=== PATIENT | male | born 1935 | race Caucasian/White ===

== ENCOUNTER → 2017-02-24 | Outpatient (CLI) | payer OTHER ==
[~2017-02-24] MED LIST: AMLO10TA2 PO; ASPI81TA28 PO; CALC1CAP36 PO; GLIP5TAB11 PO; HAWTCAP PO; HYDR25TA4 PO; IPRA1AER2 INH; LEVO25TA5 PO; LISI-789 PO; LOSA100T65 PO; MULTTAB PO; TPRSR/100 PO
== END | disposition home or self-care (01) ==
LOC: C.LABSPEC 14:34
PROVIDERS: ATTEND Urology
DX: N41.9 Inflammatory disease of prostate, unspecified (principal)

== ENCOUNTER → 2018-05-03 | Outpatient (CLI) | payer OTHER ==
[2018-05-03 17:53] LABS: HEMATOCRIT 38.2 % (42-52); HEMOGLOBIN 12.4 g/dL (14.0-18.0); MEAN CELL VOLUME 97.4 fL (80-100); MEAN CORPUSCULAR HEMOGLOBIN 31.6 pg (25-34); MEAN CORPUSCULAR HGB CONC 32.5 g/dl (32-36); PLATELET COUNT 101 K/uL (130-400); RED CELL DISTRIBUTION WIDTH CV 16.3 % (11.5-14.5); RED CELL DISTRIBUTION WIDTH SD 57.7 fL (36.4-46.3); WHITE BLOOD COUNT 38.72 K/uL (4.8-10.8)
== END | disposition home or self-care (01) ==
LOC: C.LABPBG 11:33
PROVIDERS: ATTEND Urology
DX: C91.90 Lymphoid leukemia, unspecified not having achieved remission (principal)

== ENCOUNTER 2018-09-10 17:30 | Inpatient (IN) ==
[2018-09-10] MEDS ORDERED: MAGNESIUM HYDROXIDE SUSP 30 ML UDC PO PRN (20:12)
[2018-09-10] MEDS ORDERED: ONDANSETRON INJ 2 MG/ML 2 ML VIAL IV PRN (20:12)
[2018-09-10] MEDS ORDERED: POLYETHYLENE (MIRALAX) 17 GM PACK PO PRN (20:12)
[2018-09-10] MEDS ORDERED: MoRPHine SULFATE 2 MG/ML CARP IV PRN (20:17)
[2018-09-10] MEDS ORDERED: NITROGLYCERIN SL 0.4 MG/TAB TAB SL PRN (20:17)
--- NOTE | 2018-09-10 21:29 | History & Physical Report ---
Date of Service September 10, 2018 Assessment & Plan (1) Shortness of breath: 83 y/o M Hx HTN, HLD, COPD, DM II, hypothyroid, CLL, CKD III. The pt presentes as a transfer from [facility] due to progressive SOB x 2 weeks. He reports that this is pronounced with exertion. He normally uses 2l 02 at home. A CTA was obtained at [place] demonstrating moderate BL pleural effusions. Initial labs were concerning for a WBC count of 114 which is well above baseline, anemia and worsening renal function. The pt denies CP, a productive cough or fevers. 1) SOB - likely multifactorial - worsening pleural effusions with reduced lung capacity due to COPD. Clinically, he does not appear volume overloaded for this to be CHF-related. - We will schedule a diagnostic thoracentesis as he does not appear to be volume overloaded. - He will be treated for COPD with an 02 protocol and scheduled nebs - would not provide steroids or antbx at present as there is no clear evidence of exacerbation. 2) CKD - worsening renal function - gentle IVF overnight - recheck AM. Would not be aggressive on fluids until we have a repeat CXR to assess any change in the effusions. 3) CLL - rising WBC count, anemia - will consult his oncologist 4) DM II - will place on a SS 5) Hypothyroid - cont Synthroid 6) HTN - Hold HCTZ/Losartan - cont Metoprolol penidng AM BMP - Hydralazine provided PRN Full code - SCDs pending possible thoracentesis Total time for this admit including review of labs, meds, imaging, records - discussion with pt and review of outside records 45 min History of Present Illness Chief Complaint: Shortness of breath Primary Care Provider: Bryce Randle 83 y/o M Hx HTN, HLD, COPD, DM II, hypothyroid, CLL, CKD III. The pt presentes as a transfer from [facility] due to progressive SOB x 2 weeks. He reports that this is pronounced with exertion. He normally uses 2l 02 at home. A CTA was obtained at [place] demonstrating moderate BL pleural effusions. Initial labs were concerning for a WBC count of 114 which is well above baseline, anemia and worsening renal function. The pt denies CP, a productive cough or fevers. 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 Does not drink alcohol. Lives with his . Family: Mother due to CAD Allergies Allergy/AdvReac Type Severity Reaction Status Date / Time No Known Allergies Allergy Unverified 02/26/15 15:21 Home Medications Home Medications Medication Instructions Recorded Confirmed Type AMLODIPINE BESYLATE (NORVASC) 10 mg PO DAILY #0 tab 02/26/15 History ASPIRIN (ASPIRIN EC) 81 mg PO DAILY #0 02/26/15 History Calcitriol 0.25 mcg PO DAILY #0 02/26/15 History GLIPIZIDE (GLUCOTROL) 5 mg PO BID #0 tab 02/26/15 History HAWTHORN (HAWTHORN PEREZ) 550 mg PO DAILY #0 02/26/15 History HYDROCHLOROTHIAZIDE (HCTZ) 25 mg PO DAILY #0 tab 02/26/15 History IPRATROPIUM-ALBUTEROL (COMBIVENT 1 puff INHALATION Q6H #0 inh 02/26/15 History RESPIMAT) LEVOTHYROXINE SODIUM 25 mcg PO DAILY #0 02/26/15 History LISINOPRIL (ZESTRIL) 2.5 mg PO DAILY #0 02/26/15 History LOSARTAN POTASSIUM (COZAAR) 100 mg PO DAILY #0 tab 02/26/15 History MULTIVITAMINS/MINERALS (MVI WITH 1 tab PO DAILY #0 tab 02/26/15 History MINERALS) Metoprolol Succinate (Metoprolol 100 mg PO DAILY #0 02/26/15 History Succinate ER) cholecalciferol (vitamin D3) 2,000 unit PO DAILY 09/10/18 09/10/18 History [Vitamin D3] cinnamon bark-chromium picolin 1 tab PO DAILY 09/10/18 09/10/18 History isosorbide mononitrate 120 mg PO DAILY 09/10/18 09/10/18 History selenium 50 mcg PO DAILY 09/10/18 09/10/18 History Past Med/Surg History Social History Current Living Situation: Spouse Other Information That Helps Us Care for You: No Feels Safe at Home: Yes Safety Concerns: Feels Safe At This Time Smoking Status: Never smoker Do You Dip or Chew Tobacco: No Hx Alcohol Use: No Hx Substance Use: No Beliefs That Will Affect Care: None Preferred Language: Kinyarwanda Communication Ability: Effective Senior Category Manager Required: No Review of Systems General: Denies fevers, night sweats, weight loss, weight gain ENT: Denies throat pain, nasal congestion Eyes: Denies acute visual impairment, eye pain Cardiovascular: Denies CP, palpitations, PND, orthopnea Respiratory: Progressive sob as above GI: Denies nausea, vomiting, diarrhea, constipation, GI bleeding : Denies dysuria, hesitancy, frequency, hematuria Neuro: Denies headache, lightheadedness, syncope, unilateral weakness, acute loss of balance, memory loss Endocrine: Denies polydypsia, polyuria Heme: Denies unexplained bruising Skin: Denies acute rash or ulcers Physical Exam 2 Vital Signs (Past 24 Hours): Last Vital Signs Temp 36.3 C L 09/10/18 19:37 Pulse 66 09/10/18 19:37 Resp 20 09/10/18 19:37 BP 163/75 H 09/10/18 19:37 Pulse Ox 94 09/10/18 19:37 Physical Exam: General: Mildly tachypneic, overweight, elderly male, AAO x 3, no distress ENT: No erythema or exudates, no thrush Eyes: BENJAMIN, EOMI Head and neck: Normocephalic, atraumatic, No JVD, neck is supple. Chest/heart: Nontender, S1,2, faint, no murmurs Lungs: There is no air entry at the bases, poor air movement, no crackles or wheezing Abdomen: Nontender, nondistended, BS+ Neuro: AAO x 3, speech is clear, no unilateral weakness or loss of sensation, coordination intact Musculoskeletal: No joint inflammation, muscle tenderness, FROM Skin: No acute rashes or ulcers Extremities: No clubbing, cyanosis, edema Results & Data Laboratory Results WBC 114 Hb 9.5 Plt 144 BUN 65 Creat 3.5 Diagnostic Findings CTA: 1) Moderate BL pleural effusions - R > L 2) BL atelectasis 3) Cardiomegaly 4) SPlenomegaly 5) Abnormal mediastinal and axillary lymphadenopathy
[2018-09-10] MEDS ORDERED: HydrALAZINE HCL 20 MG/ML VIAL IV PRN (22:23)
[2018-09-10] MEDS ORDERED: SODIUM CHLORIDE 0.9% 1000ML 1,000 ML IV SCH (22:30)
[2018-09-10] MEDS: ACETAMINOPHEN 325 MG TAB PO PRN (22:49)
[2018-09-11] MEDS ORDERED: PANTOprazole 40 MG TAB PO PRN (03:41)
[2018-09-11] MEDS ORDERED: cloNIDine HCL 0.3 MG/24 HR TRANSDERM SYS TD SCH (03:45)
[2018-09-11] MEDS ORDERED: GLUCOSE 10 TABS/TUBE PO PRN (04:35)
[2018-09-11] MEDS ORDERED: CARBOHYDRATES FOR HYPOGLYCEMIA PO PRN (04:35)
[2018-09-11] MEDS ORDERED: GLUCAGON FOR INJ 1 MG VIAL IM PRN (04:35)
[2018-09-11] MEDS ORDERED: GLUCOSE 40% GEL 15 GM TUBE PO PRN (04:35)
[2018-09-11] MEDS ORDERED: DEXTROSE 50% 50 ML SYRINGE IV PRN (04:35)
[2018-09-11] MEDS: LEVOTHYROXINE SODIUM 150 MCG TABLET PO SCH (05:55)
[2018-09-11 06:54] LABS: BUN Creatinine Ratio 17.5 (10-20); Calcium 8.4 mg/dl (8.5-10.1); Creatinine Clr Calc Pharmacy 16.5 ml/min; Est GFR (African American) 17.5; Est GFR (Non-African American) 15.1; Magnesium 2.6 mg/dl (1.8-2.4); Potassium 5.4 mmol/L (3.5-5.1)
--- NOTE | 2018-09-11 07:28 | XRay Report ---
XR chest 1V portable CLINICAL HISTORY: Effusions. COMPARISON STUDY: Chest radiograph February 26, 2015. FINDINGS: There is no pneumothorax. There are small bilateral pleural effusions. Interstitial thicken ing suggests pulmonary edema. Left basilar opacity is present. Mild cardiomegaly is noted. IMPRESSION: 1. Interstitial thickening suggestive of pulmonary edema. 2. Small bilateral pleural effusions with left basilar opacity which may reflect pneumonia or atelect asis. Radiographic follow-up to ensure resolution is recommended. Electronically signed by: Paolo Roblero M.D. 09/11/2018 7:27 AM
[2018-09-11 07:38] LABS: Hematocrit (blood only) 28.8 % (42-52); Hemoglobin 8.7 g/dL (14.0-18.0); Mean Corpuscular Hgb Conc 30.2 g/dL (32-36); Mean Corpuscular Volume 105.1 fL (80-100); Mean Platelet Volume 9.8 fL (7.4-10.4); Platelet Count 119 K/uL (130-400); RDW Coefficient of Variation 17.2 % (11.5-14.5); RDW Standard Deviation 65.2 fL (36.4-46.3); Red Blood Count 2.74 M/uL (4.7-6.1); White Blood Count 90.87 K/uL (4.8-10.8)
[2018-09-11] MEDS ORDERED: SODIUM POLYSTYRENE SULFONATE 15G/60ML SUSP PO STA (08:07)
[2018-09-11] MEDS: CALCITRIOL 0.25 MCG CAPSULE PO SCH (08:10)
[2018-09-11] MEDS: METOPROLOL SUCC 50MG EXT REL TAB PO SCH (08:10)
[2018-09-11] MEDS: ISOSORBIDE MONO EXTENDED REL 60 MG TABCR PO SCH (08:11)
[2018-09-11] MEDS: MAGNESIUM OXIDE 400 MG TAB PO SCH (08:11)
[2018-09-11] MEDS: ASPIRIN 81 MG ECTAB PO SCH (08:12)
[2018-09-11] MEDS: AMLODIPINE BESYLATE 5 MG TAB PO SCH (08:12)
[2018-09-11] MEDS: INSULIN ASPART 100 UNITS/ML 3 ML PEN SC SCH ×4 (08:13→20:42)
[2018-09-11 08:41] LABS: ALC (manual) 84.51 K/uL (1.2-3.4); Eosinophils # (manual) 0.73 K/uL (0-0.5); Lymphocytes # (manual) 84.51 K/uL (1.2-3.4); Monocytes # (manual) 2.82 K/uL (0.11-0.59); Monocytes % (manual) 3.1 %; Neutrophils % (manual) 3.1 %; Smudge Cells Present
--- NOTE | 2018-09-11 08:53 | Oncology Consultation ---
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 This disease typically is more aggressive than standard risk CLL and carries a poorer prognosis. It also is less responsive to conventional cytotoxic chemotherapy. His lymphocytes are essentially stable from 2 months ago, in the mid-80s. However, he has become more anemic, as discussed below. If this is related to his CLL, it would be an indication to treat him regardless of his ALC. Some of his generalized fatigue and weakness are probably related to his CLL, though it may also be related to his cardiovascular disease. There is no need to initiate urgent therapy, though I do think he will need to begin treatment in the coming weeks. Present on Admission?: Yes (2) Anemia: The explanation for his anemia is not immediately clear. It could certainly be due to progressive CLL, but his ALC was the same in July as it is now and his hemoglobin then was 11.2. He denies any acute blood loss. CLL can cause an autoimmune hemolytic anemia. I would check LFTs and a haptoglobin. If they are abnormal, we can send off a HUYEN to confirm hemolysis. Given his issues with volume overload, I would be cautious about transfusing him. However , a hemoglobin of 8 may be contributing to his heart failure, so careful transfusion with post-transfusion diuresis may be appropriate, but I would not give more than 1 unit at a time. Present on Admission?: Yes History of Present Illness Reason for Consultation: CLL, increasing leukocytosis Attending Physician: Mikel Jaramillo MD, PhD, [facility] History of Present Illness Mr. Marcum is an 83 year old gentleman with a history of COPD, CHF, and diabetes. He also has chronic lymphocytic leukemia with a 17p deletion, which is typically the most aggressive variant. In November of this year, he had an absolute lymphocyte count of 16.8 with hemoglobin 12.8, platelets 146. He was offered front-line therapy with Ibrutinib but refused. Since that time, his ALC has progressed considerably. In July, his total WBC count was 102K with an ALC of 90k, hemoglobin 11.4, and platelets 104k. He presented to [facility] yesterday complaining of shortness of breath. A CTA there revealed bilateral pleural effusions, cardiomegaly, and bibasilar atelectasis. He also had a creatinine of 3.5, which is around his baseline (since February, he ran from 3.1 to 3.4). His blood work here shows a WBC count of 90k with an ALC of 84, hemoglobin 8.4, and platelets of 119. He denies any bleeding, bruising, melena, or other stool changes. Allergies Allergy/AdvReac Type Severity Reaction Status Date / Time No Known Allergies Allergy Unverified 02/26/15 15:21 Home Medications Home Medications Medication Instructions Recorded Confirmed Type AMLODIPINE BESYLATE (NORVASC) 10 mg PO DAILY #0 tab 02/26/15 09/10/18 History ASPIRIN (ASPIRIN EC) 81 mg PO DAILY #0 02/26/15 09/10/18 History Calcitriol 0.25 mcg PO Q OTHER DAY #0 02/26/15 09/10/18 History GLIPIZIDE (GLUCOTROL) 5 mg PO BID #0 tab 02/26/15 09/10/18 History HAWTHORN (HAWTHORN PEREZ) 150 mg PO DAILY PRN #0 02/26/15 09/10/18 History HYDROCHLOROTHIAZIDE (HCTZ) 25 mg PO DAILY #0 tab 02/26/15 History IPRATROPIUM-ALBUTEROL (COMBIVENT 1 puff INHALATION Q6H #0 inh 02/26/15 History RESPIMAT) LEVOTHYROXINE SODIUM 150 mcg PO DAILY #0 02/26/15 09/10/18 History LISINOPRIL (ZESTRIL) 2.5 mg PO DAILY #0 02/26/15 History LOSARTAN POTASSIUM (COZAAR) 100 mg PO DAILY #0 tab 02/26/15 History MULTIVITAMINS/MINERALS (MVI WITH 1 tab PO DAILY #0 tab 02/26/15 09/10/18 History MINERALS) Metoprolol Succinate (Metoprolol 100 mg PO DAILY #0 02/26/15 09/10/18 History Succinate ER) Pro Stavan 1 tab PO DAILY 09/10/18 09/10/18 History atorvastatin 40 mg PO HS 09/10/18 09/10/18 History cholecalciferol (vitamin D3) 2,000 unit PO DAILY 09/10/18 09/10/18 History [Vitamin D3] cinnamon bark-chromium picolin 1 tab PO DAILY 09/10/18 09/10/18 History clonidine 1 patch TRANSDERMAL WK 09/10/18 09/10/18 History grape seed extract 1 tab PO DAILY 09/10/18 09/10/18 History hydralazine 25 mg PO TID 09/10/18 09/10/18 History isosorbide mononitrate 120 mg PO DAILY 09/10/18 09/10/18 History lorazepam 1 tab PO PRN 09/10/18 History lysine [L-Lysine] 500 mg PO DAILY 09/10/18 09/10/18 History magnesium 250 mg PO DAILY 09/10/18 09/10/18 History omeprazole 20 mg PO DAILY PRN 09/10/18 09/10/18 History selenium 50 mcg PO DAILY 09/10/18 09/10/18 History turmeric root extract 500 mg PO DAILY 09/10/18 09/10/18 History umeclidinium [Incruse Ellipta] 1 inh INHALATION DAILY 09/10/18 09/10/18 History Patient History Family History Mother Heart attack Sister Diabetes 1.5, managed as type 1 Social History Current Living Situation: Spouse Other Information That Helps Us Care for You: No Feels Safe at Home: Yes Safety Concerns: Feels Safe At This Time Smoking Status: Never smoker Do You Dip or Chew Tobacco: No Hx Alcohol Use: No Hx Substance Use: No Beliefs That Will Affect Care: None Preferred Language: Indonesian Communication Ability: Effective 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 Review of Systems Constitutional: no fever and no sweats Ear, Nose, Mouth, Throat: no epistaxis and no bleeding gums Respiratory: + cough, + dyspnea and + dyspnea on exertion; no sputum production Cardiovascular: + dyspnea on exertion; no chest pain, no palpitations and no edema Gastrointestinal: no abdominal pain, no nausea and no blood in stools Genitourinary (Male): no dysuria and no hematuria Integumentary: no rash and no bleeding lesions Neurologic: no localized weakness and no headache(s) Hematologic / Lymphatic: + lymphadenopathy (cervical); no easy bleeding and no night sweats Physical Exam 2 Vital Signs (Past 24 Hours): Last Vital Signs Temp 36.7 C 09/11/18 07:43 Pulse 54 L 09/11/18 07:43 Resp 20 09/11/18 07:43 BP 132/68 09/11/18 07:43 Pulse Ox 91 09/11/18 07:43 Constitutional: + ill appearing (chronically) and + obese; no acute distress Eyes: + anicteric sclerae and EOM intact bilaterally ENMT: external ear and nose normal, oropharynx normal Respiratory: + cough; no respiratory distress Auscultation: + diminished lung sounds (at the bases bilaterally) and + wheezes (scattered in the upper lemos) Cardiovascular: RRR, no murmur, no edema Vessels: no JVD Gastrointestinal (Abdomen): normal bowel sounds, soft, nontender, no hepatosplenomegaly Musculoskeletal: no cyanosis or clubbing, extremities motor strength 5/5 Skin: no rashes, warm and dry Lymphatic: + cervical lymphadenopathy Results & Data Laboratory Results Abnormal Lab Results 09/11/18 09/11/18 09/11/18 06:06 06:06 07:37 WBC 90.87 H* RBC 2.74 L Hgb 8.7 L Hct 28.8 L MCV 105.1 H MCH 31.8 MCHC 30.2 L RDW Std Deviation 65.2 H RDW Coeff of Maren 17.2 H Plt Count 119 L MPV 9.8 Neutrophils % (Manual) 3.1 Lymphocytes % (Manual) 93.0 Monocytes % (Manual) 3.1 Eosinophils % (Manual) 0.8 Neutrophils # (Manual) 2.82 Total Absolute Neuts 2.82 Lymphocytes # (Manual) 84.51 H Total Abs Lymphocytes 84.51 H Monocytes # (Manual) 2.82 H Eosinophils # (Manual) 0.73 H Smudge Cells Present Sodium 140 Potassium 5.4 H Chloride 111 H Carbon Dioxide 21 Anion Gap 8.0 BUN 62 H Creatinine 3.53 H Est Cr Clr Drug Dosing 16.5 Est GFR ( Amer) 17.5 Est GFR (Non-Af Amer) 15.1 BUN/Creatinine Ratio 17.5 Glucose 94 POC Glucose 104 H Calcium 8.4 L Magnesium 2.6 H _ (1) Anemia Bone marrow failure anemia type: myelophthisis Anemia type: bone marrow failure 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
--- NOTE | 2018-09-11 11:20 | Hospitalist Progress Note ---
Date of Service September 11, 2018 Assessment & Plan (1) Shortness of breath: (2) Anemia: (3) CLL (chronic lymphocytic leukemia): (4) Chest pain: (5) Diabetes: 83 y/o M transfer from [facility] due to progressive SOB x 2 weeks. Hx HTN, HLD, COPD, Chronic O2 dependent with 2 L of nasal cannula oxygen, DM II , hypothyroid, CLL, CKD III. worsenign SOB - likely multifactorial secondary to worsening pleural effusions with CHF exac, and reduced lung capacity due to COPD. right thoracentesis was done removed 850ml brown mild pink pleural fluid , Pleural fluid sent to the basic routine lab cytology and culture and sensitivity. Possible CHF exacerbation, COPD Possible exacerbation with chronic respiratory failure O2 dependent, Continue with an 02 protocol and scheduled nebs Acute on chronic CKD, Per inspector fabric to patient's baseline of creatinine was around 2.5, Nephrology will get medical record from patient's primary inspector fabric and do an ultrasound of the renal and bladder and echocardiogram CLL - rising WBC count, anemia , Patient was refusedCLL, for we will follow-up oncology input DM II, Hypothyroid, HTN; Continue home medication, Continue Hold HCTZ/Losartan, cont Metoprolol , Hydralazine provided PRN Full code - SCDs Will start Lovenox if any sign of bleeding after thoracentesis Thoracentesis: After informed consent, Supervised by Dr. Martinez, obtained and the correct location was determined By portable ultrasound,, the patient was prepped and draped in the usual sterile manner. Using the subcutaneous needle, lidocaine was applied, The thin finder needle was then used to apply further anesthetic and to locate the pleural space. A small margaret was made in the skin. The large- bore needle was then passed over the rib into the pleural space with good fluid return. The catheter was left in place while the needle was withdrawn. After samples were obtained for the laboratory, the catheter was connected to suction and 850ccs of fluid were removed. The catheter was then withdrawn and a bandage placed on the wound. Post-procedure film is pending Subjective Report labored breathing, mild cough, wheezing, Generalized weakness Review of Systems Constitutional: Positive, weakness, or fatigue Respiratory: See HPI,, mild dyspnea on exertion Cardiac: No chest pain, No orthopnea, No PND, Abdomen: No pain, No nausea, No vomiting, No diarrhea, Musculoskeletal: No joint pain, No muscle pain, No swelling, No calf pain, No problem reported : No dysuria, No urinary frequency, No incontinence, No hematuria Neurologic: No paralysis, No weakness, No numbness/tingling, No vertigo, No balance problems Psychiatric: No depression symptoms, No anhedonism, No anxiety, No insomnia, No substance abuse Heme: No abnormal bleeding/bruising, No clotting problems, No swollen lymph nodes, No night sweats Skin: No rash, No itch, No new/changing skin lesions, No color change, No bleeding Physical Exam 2 Vital Signs (Past 24 Hours): Last Vital Signs Temp 36.7 C 09/11/18 07:43 Pulse 54 L 09/11/18 07:43 Resp 20 09/11/18 07:43 BP 132/68 09/11/18 07:43 Pulse Ox 91 09/11/18 07:43 Physical Exam: General Appearance: Frail, chronically ill looking, WD/WN, no apparent distress, Eyes: normal inspection, PERRL, EOMI, sclerae normal ENT: normal ENT inspection, hearing grossly normal, pharynx normal Neck: supple, no adenopathy, thyroid normal, no JVD, no carotid bruits, trachea midline Respiratory/Chest: chest non-tender, Decreased breath sounds, Worse in bilateral lower lung, Spondylotic wheezing Cardiovascular: regular rate, rhythm, no JVD, no murmur Abdomen: normal bowel sounds, non tender, soft, no organomegaly, Extremities: normal range of motion, non-tender, normal inspection, 1+ pedal edema, no calf tenderness, normal capillary refill, pelvis stable, joint has no limited range of motion, capillary refill is normal, no cyanosis clubbing Neurologic/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: 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, no motor/sensory deficits, alert, normal mood/affect, oriented x 3 Skin: normal color, warm/dry, no rash Lymphatic: no adenopathy Results & Data Laboratory Results Laboratory Results - last 24 hr 09/11/18 09/11/18 09/11/18 06:06 06:06 07:37 WBC 90.87 H* RBC 2.74 L Hgb 8.7 L Hct 28.8 L MCV 105.1 H MCH 31.8 MCHC 30.2 L RDW Std Deviation 65.2 H RDW Coeff of Maren 17.2 H Plt Count 119 L MPV 9.8 Neutrophils % (Manual) 3.1 Lymphocytes % (Manual) 93.0 Monocytes % (Manual) 3.1 Eosinophils % (Manual) 0.8 Neutrophils # (Manual) 2.82 Total Absolute Neuts 2.82 Lymphocytes # (Manual) 84.51 H Total Abs Lymphocytes 84.51 H Monocytes # (Manual) 2.82 H Eosinophils # (Manual) 0.73 H Smudge Cells Present Sodium 140 Potassium 5.4 H Chloride 111 H Carbon Dioxide 21 Anion Gap 8.0 BUN 62 H Creatinine 3.53 H Est Cr Clr Drug Dosing 16.5 Est GFR ( Amer) 17.5 Est GFR (Non-Af Amer) 15.1 BUN/Creatinine Ratio 17.5 Glucose 94 POC Glucose 104 H Calcium 8.4 L Magnesium 2.6 H _ (1) Anemia Anemia type: bone marrow failure Bone marrow failure anemia type: myelophthisis Chronic kidney disease stage: Folate deficiency anemia type: Hemolytic anemia type: Iron deficiency anemia type: Other causes of anemia: Vitamin B12 deficiency anemia type: 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
--- NOTE | 2018-09-11 11:37 | Nephrology Consultation ---
Date of Consultation September 11, 2018 Assessment & Plan (1) Acute kidney injury: Mr. Marcum is an 83 year old white male admitted to [facility] for evaluation of dyspnea and wheezing. 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 CXR reveals mild pulmonary congestion and small bilateral pleural effusions. Patient appears clinically volume contracted. Cardiac function is unknown. 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 He has KINGA on CKD. Available records show that creatinine had risen from 2.3 to 2.7 over the last 12 months. Creatinine is now up to 3.5. -- Will order urinalysis w/ microscopy, UPCR and FeNa -- Will order bilateral renal US -- Will order serial PRP -- No acute indication for HD at this time. Will monitor -- Will order last two OV notes and all creatinine values over the last [address] Moreira ([place] [place] [facility]) (2) Chronic kidney disease: -- Available records show that creatinine had risen from 2.3 to 2.7 over the last 12 months. (3) CLL (chronic lymphocytic leukemia): -- WBC 90K. Hgb trending down. Consider blood transfusion. -- Await Oncology input (4) Hyperkalemia: -- Kayexelate administered by primary service (5) CHF (congestive heart failure): -- CXR w/ mild vascular congestion and small bilateral effusions. Although patient appears clinically volume contracted will hold IV fluids, check FeNa and order echocardiogram History of Present Illness Reason for Consultation: KINGA on CKD Attending Physician: Mikel Jaramillo MD, PhD, [facility] History of Present Illness Mr. Marcum is an 83 year old white male who is seen at the request of Dr. Jaramillo for evaluation of KINGA on CKD. Medical records in the EMR were reviewed today and are summarized as follows: Mr. Marcum resides near [place], [place]. He has CKD and has been cared for by Dr. Moreira. Available records show that creatinine has risen from 2.3 to 2.7 over the last 12 months. His medical history is also significant for COPD, HTN, AODM, BPH and CLL. Over the last 2 weeks Mr. Marcum reports progressive CAMARENA and wheezing. He presented to [facility] yesterday and was found to have WBC 90K, mild CHF and KINGA/ CKD. He was transferred to [facility] for ongoing medical management, Oncology and Nephrology evaluations. Creatinine has risen to 3.5. Mr. Marcum denies the regular use of NSAIDS, CORI/ARB or exposure to known nephrotoxic agents. He reports good UO and no difficulty voiding. Allergies Allergy/AdvReac Type Severity Reaction Status Date / Time No Known Allergies Allergy Unverified 02/26/15 15:21 Home Medications Home Medications Medication Instructions Recorded Confirmed Type AMLODIPINE BESYLATE (NORVASC) 10 mg PO DAILY #0 tab 02/26/15 09/10/18 History ASPIRIN (ASPIRIN EC) 81 mg PO DAILY #0 02/26/15 09/10/18 History Calcitriol 0.25 mcg PO Q OTHER DAY #0 02/26/15 09/10/18 History GLIPIZIDE (GLUCOTROL) 5 mg PO BID #0 tab 02/26/15 09/10/18 History HAWTHORN (HAWTHORN PEREZ) 150 mg PO DAILY PRN #0 02/26/15 09/10/18 History HYDROCHLOROTHIAZIDE (HCTZ) 25 mg PO DAILY #0 tab 02/26/15 History IPRATROPIUM-ALBUTEROL (COMBIVENT 1 puff INHALATION Q6H #0 inh 02/26/15 History RESPIMAT) LEVOTHYROXINE SODIUM 150 mcg PO DAILY #0 02/26/15 09/10/18 History LISINOPRIL (ZESTRIL) 2.5 mg PO DAILY #0 02/26/15 History LOSARTAN POTASSIUM (COZAAR) 100 mg PO DAILY #0 tab 02/26/15 History MULTIVITAMINS/MINERALS (MVI WITH 1 tab PO DAILY #0 tab 02/26/15 09/10/18 History MINERALS) Metoprolol Succinate (Metoprolol 100 mg PO DAILY #0 02/26/15 09/10/18 History Succinate ER) Pro Stavan 1 tab PO DAILY 09/10/18 09/10/18 History atorvastatin 40 mg PO HS 09/10/18 09/10/18 History cholecalciferol (vitamin D3) 2,000 unit PO DAILY 09/10/18 09/10/18 History [Vitamin D3] cinnamon bark-chromium picolin 1 tab PO DAILY 09/10/18 09/10/18 History clonidine 1 patch TRANSDERMAL WK 09/10/18 09/10/18 History grape seed extract 1 tab PO DAILY 09/10/18 09/10/18 History hydralazine 25 mg PO TID 09/10/18 09/10/18 History isosorbide mononitrate 120 mg PO DAILY 09/10/18 09/10/18 History lorazepam 1 tab PO PRN 09/10/18 History lysine [L-Lysine] 500 mg PO DAILY 09/10/18 09/10/18 History magnesium 250 mg PO DAILY 09/10/18 09/10/18 History omeprazole 20 mg PO DAILY PRN 09/10/18 09/10/18 History selenium 50 mcg PO DAILY 09/10/18 09/10/18 History turmeric root extract 500 mg PO DAILY 09/10/18 09/10/18 History umeclidinium [Incruse Ellipta] 1 inh INHALATION DAILY 09/10/18 09/10/18 History Patient History Family History Mother Heart attack Sister Diabetes 1.5, managed as type 1 Social History Current Living Situation: Spouse Other Information That Helps Us Care for You: No Feels Safe at Home: Yes Safety Concerns: Feels Safe At This Time Smoking Status: Never smoker Do You Dip or Chew Tobacco: No Hx Alcohol Use: No Hx Substance Use: No Beliefs That Will Affect Care: None Preferred Language: French Communication Ability: Effective [employer] Required: No Review of Systems Constitutional: no fever Eyes: no problem reported Respiratory: + dyspnea on exertion and + wheezing Cardiovascular: no chest pain and no edema Gastrointestinal: no abdominal pain, no vomiting and no diarrhea/loose stools Genitourinary (Male): no dysuria, no difficulty urinating and no hematuria Physical Exam 2 Vital Signs (Past 24 Hours): Last Vital Signs Temp 36.7 C 09/11/18 07:43 Pulse 54 L 09/11/18 07:43 Resp 20 09/11/18 07:43 BP 132/68 09/11/18 07:43 Pulse Ox 91 09/11/18 07:43 Constitutional: well developed and well nourished Eyes: PERRL, conjunctivae normal, anicteric sclerae ENMT: Mouth: + oral mucosal abnormality (dry mucous membranes) Neck: trachea midline, no thyromegaly Respiratory: normal respiratory effort, lungs clear to auscultation Cardiovascular: RRR, no murmur, no edema Vessels: no JVD Extremities: no edema Gastrointestinal (Abdomen): normal bowel sounds, soft, nontender, no hepatosplenomegaly Skin: + turgor decreased Results & Data Laboratory Results Laboratory Tests 09/11/18 09/11/18 06:06 06:06 WBC 90.87 H* Hgb 8.7 L Hct 28.8 L Plt Count 119 L Sodium 140 Potassium 5.4 H Chloride 111 H Carbon Dioxide 21 BUN 62 H Creatinine 3.53 H Glucose 94 Calcium 8.4 L Magnesium 2.6 H 09/11/18 CXR: 1. Interstitial thickening suggestive of pulmonary edema. 2. Small bilateral pleural effusions with left basilar opacity which may reflect pneumonia or atelectasis. Radiographic follow-up to ensure resolution is recommended.
--- NOTE | 2018-09-11 12:17 | XRay Report ---
XR chest 2V routine CLINICAL HISTORY: Status post right thoracentesis. COMPARISON STUDY: Chest radiograph September 11, 2018. FINDINGS: There is no pneumothorax following right thoracentesis. Right pleural effusion has decrease d in volume. Trace left pleural effusion is noted. Cardiomegaly is noted. Interstitial thickening per sists. This suggests pulmonary edema. There is left basilar hazy opacity. Several old right rib fract ures are noted. IMPRESSION: 1. No pneumothorax following right thoracentesis. 2. Persistent interstitial thickening which favors pulmonary edema. 3. Mild left basilar opacity which may reflect atelectasis or consolidation. Electronically signed by: Paolo Roblero M.D. 09/11/2018 12:16 PM
[2018-09-11 12:33] LABS: Total Protein Pleural Fluid 3.4 g/dl
[2018-09-11] MEDS: ALUMINUM/MAGNESIUM SUSP 30 ML UDC PO PRN (12:33)
[2018-09-11 12:34] LABS: Appearance Urine Clear (Clear); Bacteria Urine Automated Negative (Negative); Bilirubin Urine Negative (Negative); Color Urine Yellow; Epithelial Cell Urine Auto 0-5 /lpf (0-5); Glucose Urine UA Negative (Negative); Ketones Urine Negative (Negative); Leukocyte Esterase Urine Negative (Negative); Nitrite Urine Negative (Negative); Protein Urine 2+ (Negative); Specific Gravity Urine 1.016 (1.000-1.030); Urobilinogen Urine Negative (Negative)
--- NOTE | 2018-09-11 12:34 | Ultrasound Report ---
RENAL ULTRASOUND CLINICAL HISTORY: Acute kidney injury. COMPARISON STUDY: CT of the abdomen and pelvis February 16, 2015. TECHNIQUE: Sonography of the kidneys and the urinary bladder was performed. FINDINGS: The right kidney measures 9.2 cm in maximal dimension and the left measures 9.8 cm per ther e is no hydronephrosis. There is moderate renal cortical thinning. Several left renal cysts are noted . Incidental note is made of a left pleural effusion and moderate splenomegaly. Spleen measures 17.1 cm in maximal dimension. A few splenic cysts are noted. Bladder is suboptimally assessed given underd istention. There is mild irregular bladder wall thickening. IMPRESSION: 1. No hydronephrosis. 2. Moderate splenomegaly. 3. Moderate renal cortical thinning. Electronically signed by: Paool Roblero M.D. 09/11/2018 12:32 PM
[2018-09-11] MEDS: PANTOprazole 40 MG TAB PO SCH (12:35)
[2018-09-11 13:00] LABS: Creatinine Urine Random 66.4 mg/dl; Total Protein Urine Random 158.5 mg/dl (0-11.9)
[2018-09-11] MEDS: ALPRAZolam 0.25 MG TABLET PO PRN ×2 (14:05→20:45)
--- NOTE | 2018-09-11 14:59 | Pulmonary Consultation ---
Date of Consultation September 11, 2018 Assessment & Plan (1) CHF (congestive heart failure): Impression: 1. Dyspnea likely multifactorial, however the pleural fluid are transudate in nature, most likely representing cardiac or renal source. 2. The patient has no history of COPD, never smoked cigarettes in the past, he worked in the [employer] and likely has restrictive lung disease rather than obstructive lung disease. 3. Unclear to me why the patient was started on Incruse as an outpatient, I do not have pulmonary function test on him in this hospital. 4. Consider high-resolution CAT scan of the chest given his elevated white count, leukemoid pneumonitis can occur, however I would expect the WBC in the range of 400,000 rather than only 90,000. 5. Discussed with Dr. Jaramillo, appreciate his assistance. Thank you History of Present Illness Reason for Consultation: Shortness of breath and bilateral pleural effusion. Requesting Physician: Dr. Jaramillo Attending Physician: Mikel Jaramillo MD, PhD, [facility] History of Present Illness Dear Dr. Jaramillo: Thank you for the kind referral Mr. Marcum to pulmonary service. This is 83-year -old gentleman with a history of CLL, interstitial lung disease, hypothyroidism , CKD, diabetes, presented to [facility] with increasing shortness of breath, the patient underwent a chest x-ray which showed bilateral pleural effusion, and he was sent to our institution for further management. The patient has been followed by a bleach chlorinator and a technical support associate at [facility] but due to insurance issues he could not follow-up with them. The patient on his presentation noted to have increasing shortness of breath accompanied with nonproductive cough. He did have elevated white count 214,000 part of his illness with CLL. The patient does have orthopnea and has dyspnea on exertion. No increased swelling in his lower extremities. No abdominal pain noted no change in bowel movements or urine habits and no nausea or vomiting. No hemoptysis either. Review of system apart from the above was unremarkable. When I interviewed the patient, he continued to have symptoms, bedside ultrasound was done which showed bilateral pleural effusion right greater than left. Thoracentesis was done with 850 mL of blood-tinged fluid was removed, appears to be transudate in nature. Cell count in this fluid are still pending. Patient was evaluated by nephrology, abdominal ultrasound which showed splenomegaly and atrophy of the renal cortex. Social history, the patient never smoked cigarettes in his life, does not have secondhand exposure to smoking. 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 Family history is not contributing, and post surgical history as mentioned above in the H&P. Allergies Allergy/AdvReac Type Severity Reaction Status Date / Time No Known Allergies Allergy Unverified 02/26/15 15:21 Home Medications Home Medications Medication Instructions Recorded Confirmed Type AMLODIPINE BESYLATE (NORVASC) 10 mg PO DAILY #0 tab 02/26/15 09/10/18 History ASPIRIN (ASPIRIN EC) 81 mg PO DAILY #0 02/26/15 09/10/18 History Calcitriol 0.25 mcg PO Q OTHER DAY #0 02/26/15 09/10/18 History GLIPIZIDE (GLUCOTROL) 5 mg PO BID #0 tab 02/26/15 09/10/18 History HAWTHORN (HAWTHORN PEREZ) 150 mg PO DAILY PRN #0 02/26/15 09/10/18 History HYDROCHLOROTHIAZIDE (HCTZ) 25 mg PO DAILY #0 tab 02/26/15 History IPRATROPIUM-ALBUTEROL (COMBIVENT 1 puff INHALATION Q6H #0 inh 02/26/15 History RESPIMAT) LEVOTHYROXINE SODIUM 150 mcg PO DAILY #0 02/26/15 09/10/18 History LISINOPRIL (ZESTRIL) 2.5 mg PO DAILY #0 02/26/15 History LOSARTAN POTASSIUM (COZAAR) 100 mg PO DAILY #0 tab 02/26/15 History MULTIVITAMINS/MINERALS (MVI WITH 1 tab PO DAILY #0 tab 02/26/15 09/10/18 History MINERALS) Metoprolol Succinate (Metoprolol 100 mg PO DAILY #0 02/26/15 09/10/18 History Succinate ER) Pro Stavan 1 tab PO DAILY 09/10/18 09/10/18 History atorvastatin 40 mg PO HS 09/10/18 09/10/18 History cholecalciferol (vitamin D3) 2,000 unit PO DAILY 09/10/18 09/10/18 History [Vitamin D3] cinnamon bark-chromium picolin 1 tab PO DAILY 09/10/18 09/10/18 History clonidine 1 patch TRANSDERMAL WK 09/10/18 09/10/18 History grape seed extract 1 tab PO DAILY 09/10/18 09/10/18 History hydralazine 25 mg PO TID 09/10/18 09/10/18 History isosorbide mononitrate 120 mg PO DAILY 09/10/18 09/10/18 History lorazepam 1 tab PO PRN 09/10/18 History lysine [L-Lysine] 500 mg PO DAILY 09/10/18 09/10/18 History magnesium 250 mg PO DAILY 09/10/18 09/10/18 History omeprazole 20 mg PO DAILY PRN 09/10/18 09/10/18 History selenium 50 mcg PO DAILY 09/10/18 09/10/18 History turmeric root extract 500 mg PO DAILY 09/10/18 09/10/18 History umeclidinium [Incruse Ellipta] 1 inh INHALATION DAILY 09/10/18 09/10/18 History Patient History Family History Mother Heart attack Sister Diabetes 1.5, managed as type 1 Social History Current Living Situation: Spouse Other Information That Helps Us Care for You: No Feels Safe at Home: Yes Safety Concerns: Feels Safe At This Time Smoking Status: Never smoker Do You Dip or Chew Tobacco: No Hx Alcohol Use: No Hx Substance Use: No Beliefs That Will Affect Care: None Preferred Language: Bolivian Communication Ability: Effective [employer] Required: No Review of Systems Review of system including 14 systems was unremarkable except for the above mentioned in the first section. Physical Exam 2 Vital Signs (Past 24 Hours): Last Vital Signs Temp 36.7 C 09/11/18 07:43 Pulse 51 L 09/11/18 13:15 Resp 20 09/11/18 07:43 BP 132/68 09/11/18 07:43 Pulse Ox 91 09/11/18 07:43 Physical Exam: No fever, vital signs are stable, O2 saturation 94% on 3 L nasal cannula, no JVP, bilateral wheezing, S1-S2 regular rate and rhythm, abdomen is benign, trace edema in the periphery. Results & Data Laboratory Results Elevated BUN and creatinine, WBC is 90,000, hematocrit is stable. And platelets has been stable as well. Pleural fluid transudate in nature. Diagnostic Findings Chest x-ray showed haziness bilaterally, I do not have previous pulmonary function test on him, no CAT scan also done on him in this hospital.
--- NOTE | 2018-09-11 15:06 | Procedure Note ---
Procedure Note Date of Service September 11, 2018 Note Procedure was done at the bedside, performed by Dr. Jaramillo, I was present throughout the entire procedure. The patient consented to the procedure, risks and benefits explained in details , agreed to the procedure. The patient was placed in upright position, under ultrasound guidance, on the right eighth intercostal space posteriorly, under strict sterile field the skin was prepped with chlorhexidine, and injected with 10 mL of 1% lidocaine, using a scalpel and Seldinger technique, the catheter was introduced into the right pleural cavity, total amount of 850 mL of blood-tinged fluid was removed, sent for analysis, initial analysis showed transudate pleural effusion. After completion of the procedure, the catheter was removed and pressure applied at the insertion site for 2 minutes, chest x-ray did not reveal any pneumothorax, tolerated the procedure very well without complication. Thank you
[2018-09-11] MEDS: ATORVASTATIN 40 MG TAB PO SCH (20:42)
[2018-09-12 02:29] LABS: Mononuclear WBC Pleural 98.6 %; Polynuclear WBC Pleural 1.4 %; RBC Pleural Fluid (A) 20000 /uL; Source Pleural Fluid RIGHT LUNG; WBC Pleural Fluid (A) 2124 /uL
[2018-09-12] MEDS: LEVOTHYROXINE SODIUM 150 MCG TABLET PO SCH (05:58)
[2018-09-12 07:42] LABS: Hematocrit (blood only) 28.2 % (42-52); Hemoglobin 8.7 g/dL (14.0-18.0); Mean Corpuscular Hgb Conc 30.9 g/dL (32-36); Mean Corpuscular Volume 105.6 fL (80-100); Mean Platelet Volume 9.8 fL (7.4-10.4); Platelet Count 105 K/uL (130-400); RDW Coefficient of Variation 16.9 % (11.5-14.5); RDW Standard Deviation 64.9 fL (36.4-46.3); Red Blood Count 2.67 M/uL (4.7-6.1); White Blood Count 87.93 K/uL (4.8-10.8)
[2018-09-12 07:49] LABS: BUN Creatinine Ratio 16.5 (10-20); Calcium 8.7 mg/dl (8.5-10.1); Creatinine Clr Calc Pharmacy 16.3 ml/min; Est GFR (African American) 17.2; Est GFR (Non-African American) 14.8; Potassium 4.5 mmol/L (3.5-5.1)
[2018-09-12 08:02] LABS: Albumin Globulin Ratio 0.9 (0.9-2); Bilirubin,Total 0.3 mg/dl (0.2-1); Globulin 3.4 gm/dl (2.5-4.0); Total Protein 6.4 gm/dl (6.4-8.2)
[2018-09-12] MEDS: METOPROLOL SUCC 50MG EXT REL TAB PO SCH (08:31)
[2018-09-12] MEDS: ISOSORBIDE MONO EXTENDED REL 60 MG TABCR PO SCH (08:32)
[2018-09-12] MEDS: AMLODIPINE BESYLATE 5 MG TAB PO SCH (08:33)
[2018-09-12] MEDS: ASPIRIN 81 MG ECTAB PO SCH (08:34)
[2018-09-12] MEDS: INSULIN ASPART 100 UNITS/ML 3 ML PEN SC SCH ×4 (08:39→20:49)
--- NOTE | 2018-09-12 10:28 | Nephrology Progress Note ---
Date of Service September 12, 2018 Assessment & Plan (1) Acute kidney injury: Mr. Marcum is an 83 year old white male admitted to [facility] for evaluation of dyspnea and wheezing. 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 CXR reveals mild pulmonary congestion and small bilateral pleural effusions. Patient appears clinically volume contracted. Cardiac function is unknown. 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 He has KINGA on CKD. Available records show that creatinine had risen from 2.3 to 2.7 over the last 12 months. Creatinine is now up to 3.5. -- UA +2 protein and trace blood. Microscopy acellular. -- Check CPK with next blood work. -- Renal US reviewed this morning. No evidence of obstruction. -- Repeat RPP tomorrow AM. -- No acute indication for HD at this time. Will monitor. -- Recent clinic notes from Dr. Moreira ([facility]) have been requested. (2) Chronic kidney disease: -- Available records show that creatinine had risen from 2.3 to 2.7 over the last 12 months. -- Wyatt notes that he had discussed potential future considerations for HD with Dr. Moreira in the past. Wyatt had deferred scheduling AVF placement. He is receptive to HD if indicated. (3) CLL (chronic lymphocytic leukemia): -- Hematology consultation reviewed. -- No emergent plan for treatment. -- Hemoglobin stable. (4) Hyperkalemia: -- Improved following administration of Kayexelate. (5) CHF (congestive heart failure): -- CXR w/ mild vascular congestion and small bilateral effusions. -- TTE demonstrated increased RVSP with mild concentric LVH. No significant valvular heart disease. -- Net negative fluid balance (- 500 ml) without diuretics. -- Will continue to monitor. Diuretics may be restarted as needed to encourage net negative fluid balance. Subjective No acute events overnight. Wyatt reports improvement in dyspnea. CAMARENA persists. Wheeze persists. Appetite is reduced. Activity tolerance is reduced. No fevers or chills. No chest pain or palpitations. Review of Systems All systems reviewed & are unremarkable except as noted in HPI & below Physical Exam 2 Vital Signs (Past 24 Hours): Last Vital Signs Temp 37.1 C 09/12/18 07:27 Pulse 60 09/12/18 07:27 Resp 24 09/12/18 07:27 BP 134/68 09/12/18 07:27 Pulse Ox 93 09/12/18 07:27 Constitutional: well developed and well nourished Eyes: PERRL, conjunctivae normal, anicteric sclerae ENMT: Mouth: + oral mucosal abnormality (dry mucous membranes) Neck: trachea midline, no thyromegaly Respiratory: normal respiratory effort, lungs clear to auscultation Cardiovascular: RRR, no murmur, no edema Vessels: no JVD Extremities: no edema Gastrointestinal (Abdomen): normal bowel sounds, soft, nontender, no hepatosplenomegaly Musculoskeletal: Extremities: no cyanosis and no clubbing Skin: + turgor decreased Neurologic: awake Motor/Sensory: no tremor and no asterixis Psychiatric: Orientation: oriented to person Affect: euthymic affect Results & Data Laboratory Results Laboratory Results - last 24 hr 09/11/18 09/11/18 09/11/18 11:15 11:15 11:47 WBC RBC Hgb Hct MCV MCH MCHC RDW Std Deviation RDW Coeff of Maren Plt Count MPV Sodium Potassium Chloride Carbon Dioxide Anion Gap BUN Creatinine Est Cr Clr Drug Dosing Est GFR ( Amer) Est GFR (Non-Af Amer) BUN/Creatinine Ratio Glucose POC Glucose 172 H Calcium Total Bilirubin AST ALT Alkaline Phosphatase Lactate Dehydrogenase Total Protein Albumin Globulin Albumin/Globulin Ratio Urine Color Urine Appearance Urine pH Ur Specific [place] Urine Protein Urine Glucose (UA) Urine Ketones Urine Blood Urine Nitrite Urine Bilirubin Urine Urobilinogen Ur Leukocyte Esterase Urine WBC (Auto) Urine RBC (Auto) U Hyaline Cast (Auto) U Epithel Cells (Auto) Urine Bacteria (Auto) Ur Random Creatinine U Random Total Protein Ur Random Sodium Protein/Creatinin Ratio Pleural Fluid Source RIGHT LUNG Pleural Color MUKUL Pleural Appearance HAZY Pleural Spec [place] 1.022 Pleural WBC 2124 Pleural RBC 69804 Pleural Polynuclear % 1.4 Pleural Mononuclear % 98.6 Pleural Total Protein 3.4 Pleural Albumin 2.0 Pleural LDH 116 Pleural Glucose 147 Pleural Amylase 25 Pleural Triglycerides 16 09/11/18 09/11/18 09/11/18 12:00 12:00 12:00 WBC RBC Hgb Hct MCV MCH MCHC RDW Std Deviation RDW Coeff of Maren Plt Count MPV Sodium Potassium Chloride Carbon Dioxide Anion Gap BUN Creatinine Est Cr Clr Drug Dosing Est GFR ( Amer) Est GFR (Non-Af Amer) BUN/Creatinine Ratio Glucose POC Glucose Calcium Total Bilirubin AST ALT Alkaline Phosphatase Lactate Dehydrogenase Total Protein Albumin Globulin Albumin/Globulin Ratio Urine Color Yellow Urine Appearance Clear Urine pH 5.0 Ur Specific [place] 1.016 Urine Protein 2+ H Urine Glucose (UA) Negative Urine Ketones Negative Urine Blood Trace H Urine Nitrite Negative Urine Bilirubin Negative Urine Urobilinogen Negative Ur Leukocyte Esterase Negative Urine WBC (Auto) 1-5 Urine RBC (Auto) 0-4 U Hyaline Cast (Auto) 1-5 U Epithel Cells (Auto) 0-5 Urine Bacteria (Auto) Negative Ur Random Creatinine Cancelled 66.4 U Random Total Protein 158.5 H Ur Random Sodium Cancelled 89 Protein/Creatinin Ratio 2.4 H Pleural Fluid Source Pleural Color Pleural Appearance Pleural Spec [place] Pleural WBC Pleural RBC Pleural Polynuclear % Pleural Mononuclear % Pleural Total Protein Pleural Albumin Pleural LDH Pleural Glucose Pleural Amylase Pleural Triglycerides 09/11/18 09/11/18 09/11/18 14:12 14:12 16:14 WBC RBC Hgb Hct MCV MCH MCHC RDW Std Deviation RDW Coeff of Maren Plt Count MPV Sodium Potassium Chloride Carbon Dioxide Anion Gap BUN Creatinine Est Cr Clr Drug Dosing Est GFR ( Amer) Est GFR (Non-Af Amer) BUN/Creatinine Ratio Glucose POC Glucose 166 H Calcium Total Bilirubin AST ALT Alkaline Phosphatase Lactate Dehydrogenase 323 H Total Protein 6.9 Albumin Globulin Albumin/Globulin Ratio Urine Color Urine Appearance Urine pH Ur Specific [place] Urine Protein Urine Glucose (UA) Urine Ketones Urine Blood Urine Nitrite Urine Bilirubin Urine Urobilinogen Ur Leukocyte Esterase Urine WBC (Auto) Urine RBC (Auto) U Hyaline Cast (Auto) U Epithel Cells (Auto) Urine Bacteria (Auto) Ur Random Creatinine U Random Total Protein Ur Random Sodium Protein/Creatinin Ratio Pleural Fluid Source Pleural Color Pleural Appearance Pleural Spec [place] Pleural WBC Pleural RBC Pleural Polynuclear % Pleural Mononuclear % Pleural Total Protein Pleural Albumin Pleural LDH Pleural Glucose Pleural Amylase Pleural Triglycerides 09/11/18 09/12/18 09/12/18 20:16 06:51 06:51 WBC 87.93 H* RBC 2.67 L Hgb 8.7 L Hct 28.2 L MCV 105.6 H MCH 32.6 MCHC 30.9 L RDW Std Deviation 64.9 H RDW Coeff of Maren 16.9 H Plt Count 105 L MPV 9.8 Sodium 141 Potassium 4.5 D Chloride 112 H Carbon Dioxide 24 Anion Gap 6.0 BUN 59 H Creatinine 3.58 H Est Cr Clr Drug Dosing 16.3 Est GFR ( Amer) 17.2 Est GFR (Non-Af Amer) 14.8 BUN/Creatinine Ratio 16.5 Glucose 120 H POC Glucose 128 H Calcium 8.7 Total Bilirubin 0.3 AST 9 L ALT 17 Alkaline Phosphatase 156 H Lactate Dehydrogenase Total Protein 6.4 Albumin 3.0 L Globulin 3.4 Albumin/Globulin Ratio 0.9 Urine Color Urine Appearance Urine pH Ur Specific [place] Urine Protein Urine Glucose (UA) Urine Ketones Urine Blood Urine Nitrite Urine Bilirubin Urine Urobilinogen Ur Leukocyte Esterase Urine WBC (Auto) Urine RBC (Auto) U Hyaline Cast (Auto) U Epithel Cells (Auto) Urine Bacteria (Auto) Ur Random Creatinine U Random Total Protein Ur Random Sodium Protein/Creatinin Ratio Pleural Fluid Source Pleural Color Pleural Appearance Pleural Spec [place] Pleural WBC Pleural RBC Pleural Polynuclear % Pleural Mononuclear % Pleural Total Protein Pleural Albumin Pleural LDH Pleural Glucose Pleural Amylase Pleural Triglycerides 09/12/18 07:11 WBC RBC Hgb Hct MCV MCH MCHC RDW Std Deviation RDW Coeff of Maren Plt Count MPV Sodium Potassium Chloride Carbon Dioxide Anion Gap BUN Creatinine Est Cr Clr Drug Dosing Est GFR ( Amer) Est GFR (Non-Af Amer) BUN/Creatinine Ratio Glucose POC Glucose 148 H Calcium Total Bilirubin AST ALT Alkaline Phosphatase Lactate Dehydrogenase Total Protein Albumin Globulin Albumin/Globulin Ratio Urine Color Urine Appearance Urine pH Ur Specific [place] Urine Protein Urine Glucose (UA) Urine Ketones Urine Blood Urine Nitrite Urine Bilirubin Urine Urobilinogen Ur Leukocyte Esterase Urine WBC (Auto) Urine RBC (Auto) U Hyaline Cast (Auto) U Epithel Cells (Auto) Urine Bacteria (Auto) Ur Random Creatinine U Random Total Protein Ur Random Sodium Protein/Creatinin Ratio Pleural Fluid Source Pleural Color Pleural Appearance Pleural Spec [place] Pleural WBC Pleural RBC Pleural Polynuclear % Pleural Mononuclear % Pleural Total Protein Pleural Albumin Pleural LDH Pleural Glucose Pleural Amylase Pleural Triglycerides
[2018-09-12 11:51] LABS: Estimated Average Glucose 143 mg/dl
--- NOTE | 2018-09-12 15:12 | Consultation Report ---
DATE OF CONSULTATION: 09/12/2018 REASON FOR CONSULTATION: Bilateral pleural effusion. 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 The patient also has multiple other medical comorbidities. He is complaining of shortness of breath and presented to a local hospital in [place] and was transferred down. He had bilateral pleural effusions and bibasilar atelectasis, also has creatinine of 3.5, which was quite concerning. His white blood count was 90,000. I was asked to see him to help manage his pleural effusions. He was seen by Dr. Martinez yesterday and had a right thoracentesis under ultrasound guidance and about 850 mL of fluid was removed. This fluid was evaluated. It appeared to be transudative with a LDH of 116. Blood sugar was 1.47. The patient states he feels better after the thoracentesis. PAST MEDICAL HISTORY: 1. Episodes of congestive heart failure. 2. Chronic renal insufficiency with acute kidney injury. 3. Hyperkalemia. 4. Chronic lymphocytic leukemia. 5. Leukocytosis secondary to CLL. 6. Anemia. 7. Dyspnea at rest. 8. Diabetes mellitus. 9. Hypothyroidism. 10. Hypertension. 11. Hypercholesterolemia. 12. Questionable gastroesophageal reflux disease. PAST SURGICAL HISTORY: 1. Bilateral total knee arthroplasties. 2. Right second toe amputation. 3. Esophageal dilatation. 4. Carpal tunnel release. MEDICATIONS (AT HOME): 1. Multiple [id number] nutritional supplements. 2. Metoprolol. 3. Cozaar. 4. Synthroid. 5. Zestril. 6. Inhalers. 7. Glucotrol. 8. Hydrochlorothiazide. 9. Aspirin. 10. Norvasc. 11. Calcitriol. ALLERGIES: No known drug allergies. SOCIAL HISTORY: The patient lives with his . 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 He has never smoked cigarettes. He does not use alcohol. He is independent of activities of daily living. FAMILY MEDICAL HISTORY: The patient had a sister who of complications of diabetes mellitus. He has 4 other sisters who are alive. His mother from coronary artery disease, father from complications of Parkinson's and they were both in their 80s. His children are healthy. REVIEW OF SYSTEMS: The patient denies any changes in his weight. His biggest complaint has been he has become progressively more short of breath and has orthopnea. He has no chest pain or palpitations with this. He denies any fevers or night sweats. He denies any visual or auditory changes. He denies palpitations or chest pressure. He denies nausea, vomiting or diarrhea. He states his urine has been "normal." He denies any focal deficits, syncope, or seizures. He has had no skin breakdown. PHYSICAL EXAMINATION: GENERAL: This is a 5 feet 7 inches, about 190-pound male who is awake, alert, oriented and conversant. HEENT: His extraocular movements were intact. Pupils were equally round and reactive. His sclerae are anicteric. He has no nasolabial flattening. His tongue is midline. He has no oral mucosal lesions such as leukoplakia, but his mucous membranes are a bit dry. NECK: His neck is supple. He has no carotid bruits. He has no lymphadenopathy or thyromegaly. LUNGS: He does have decreased breath sounds in both bases. He has no wheezing today, although he apparently was wheezing yesterday. HEART: Upon auscultation of his chest, he has a regular rate and rhythm of his heart without a significant rub. I really see no joint effusions or peripheral edema. He has palpable pulses in his pedal area. ABDOMEN: Soft, nontender. He has no evidence of ascites. NEUROLOGIC: He is awake, alert, oriented. He does appear to have problems with his right shoulder with decreased range of motion and apparently he has had surgery on this in the past. ASSESSMENT AND PLAN: 1. Bilateral pleural effusions. This is a transudative effusion. His x-ray after his thoracentesis yesterday showed a sharp right hemidiaphragm with flattening of the left hemidiaphragm. He is better, but was asking about "getting something done about this fluid on the left." In addition, he was also told that he had "big lymph nodes" in his chest. Unfortunately, I do not have the CT scan done in [place]. A CTA was performed. We will have to get the results of this to determine what to do. At this point, he seems comfortable. I will discuss this case with Dr. aWng.
--- NOTE | 2018-09-12 15:40 | Hospitalist Progress Note ---
Date of Service September 12, 2018 Assessment & Plan (1) Shortness of breath: (2) Anemia: (3) CLL (chronic lymphocytic leukemia): (4) Chest pain: (5) Diabetes: 83 y/o M transfer from [facility] due to CHF exacerbation and pleural effusion associated with progressive SOB x 2 weeks. Hx HTN, HLD, COPD, Chronic O2 dependent with 2 L of nasal cannula oxygen, DM II , hypothyroid, CLL, CKD III. Acute on chronic CHF exacerbation and pleural effusion with worsenign SOB: Stable, improving, Likely multifactorial secondary to worsening pleural effusions with CHF exac, and reduced lung capacity due to COPD. thoracentesis was done removed 850ml brown mild pink pleural fluid , Pleural fluid sent to the basic routine lab cytology and culture and sensitivity. Hold diuretic today because of worsening kidney function, nephrology input appreciated Possible CHF exacerbation, COPD Possible exacerbation with chronic respiratory failure O2 dependent, Continue with an 02 protocol and scheduled nebs Acute on chronic CKD, Per circus trainer to patient's baseline of creatinine was around 2.5, Nephrology had got medical record from patient's primary circus trainer and do an ultrasound of the renal and bladder and echocardiogram. renal US: September 11, 2017 per report 1. No hydronephrosis. 2. Moderate splenomegaly. 3. Moderate renal cortical thinning. CLL white count is better today, Patient has been refused tx for CLL, DM II, Hypothyroid, HTN; Continue home medication, Continue Hold HCTZ/Losartan, cont Metoprolol , Hydralazine provided scheduled and PRN, increase scheduled hydralazine 25 mg 3 times daily to 50 mg 3 times daily Full code - SCDs Lovenox Dose Subjective Redness of breath is getting better, occasional cough and wheezing, however has been able to sitting up and walk in the room, Generalized weakness Review of Systems Constitutional: Positive, weakness, or fatigue Respiratory: See HPI,, mild dyspnea on exertion Cardiac: No chest pain, No orthopnea, No PND, Abdomen: No pain, No nausea, No vomiting, No diarrhea, Musculoskeletal: No joint pain, No muscle pain, No swelling, No calf pain, No problem reported : No dysuria, No urinary frequency, No incontinence, No hematuria Neurologic: No paralysis, No weakness, No numbness/tingling, No vertigo, No balance problems Psychiatric: No depression symptoms, No anhedonism, No anxiety, No insomnia, No substance abuse Heme: No abnormal bleeding/bruising, No clotting problems, No swollen lymph nodes, No night sweats Skin: No rash, No itch, No new/changing skin lesions, No color change, No bleeding Physical Exam 2 Vital Signs (Past 24 Hours): Last Vital Signs Temp 36.3 C L 09/12/18 15:30 Pulse 58 L 09/12/18 15:30 Resp 20 09/12/18 15:30 BP 154/64 H 09/12/18 15:30 Pulse Ox 96 09/12/18 15:30 Physical Exam: General Appearance: Frail, chronically ill looking, WD/WN, no apparent distress, Eyes: normal inspection, PERRL, EOMI, sclerae normal ENT: normal ENT inspection, hearing grossly normal, pharynx normal Neck: supple, no adenopathy, thyroid normal, no JVD, no carotid bruits, trachea midline Respiratory/Chest: chest non-tender, Decreased breath sounds, Worse in bilateral lower lung, Spondylotic wheezing Cardiovascular: regular rate, rhythm, no JVD, no murmur Abdomen: normal bowel sounds, non tender, soft, no organomegaly, Extremities: normal range of motion, non-tender, normal inspection, trace pedal edema, no calf tenderness, normal capillary refill , pelvis stable, joint has no limited range of motion, capillary refill is normal, no cyanosis clubbing Neurologic/Psychiatric: 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 II-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 nml as tested, no motor/sensory deficits, alert, normal mood/affect, oriented x 3 Skin: normal color, warm/dry, no rash Lymphatic: no adenopathy Results & Data Laboratory Results Laboratory Results - last 24 hr 09/11/18 09/11/18 09/11/18 11:15 16:14 20:16 WBC RBC Hgb Hct MCV MCH MCHC RDW Std Deviation RDW Coeff of Maren Plt Count MPV Sodium Potassium Chloride Carbon Dioxide Anion Gap BUN Creatinine Est Cr Clr Drug Dosing Est GFR ( Amer) Est GFR (Non-Af Amer) BUN/Creatinine Ratio Glucose POC Glucose 166 H 128 H Estimat Average Glucose Hemoglobin A1c Calcium Total Bilirubin AST ALT Alkaline Phosphatase Total Protein Albumin Globulin Albumin/Globulin Ratio Fluid Slide Review Pleural Fluid Source RIGHT LUNG Pleural Color MUKUL Pleural Appearance HAZY Pleural WBC 2124 Pleural RBC 52994 Pleural Polynuclear % 1.4 Pleural Mononuclear % 98.6 09/12/18 09/12/18 09/12/18 06:51 06:51 06:51 WBC 87.93 H* RBC 2.67 L Hgb 8.7 L Hct 28.2 L MCV 105.6 H MCH 32.6 MCHC 30.9 L RDW Std Deviation 64.9 H RDW Coeff of Maren 16.9 H Plt Count 105 L MPV 9.8 Sodium 141 Potassium 4.5 D Chloride 112 H Carbon Dioxide 24 Anion Gap 6.0 BUN 59 H Creatinine 3.58 H Est Cr Clr Drug Dosing 16.3 Est GFR ( Amer) 17.2 Est GFR (Non-Af Amer) 14.8 BUN/Creatinine Ratio 16.5 Glucose 120 H POC Glucose Estimat Average Glucose 143 Hemoglobin A1c 6.6 H Calcium 8.7 Total Bilirubin 0.3 AST 9 L ALT 17 Alkaline Phosphatase 156 H Total Protein 6.4 Albumin 3.0 L Globulin 3.4 Albumin/Globulin Ratio 0.9 Fluid Slide Review Pleural Fluid Source Pleural Color Pleural Appearance Pleural WBC Pleural RBC Pleural Polynuclear % Pleural Mononuclear % 09/12/18 09/12/18 07:11 11:06 WBC RBC Hgb Hct MCV MCH MCHC RDW Std Deviation RDW Coeff of Maren Plt Count MPV Sodium Potassium Chloride Carbon Dioxide Anion Gap BUN Creatinine Est Cr Clr Drug Dosing Est GFR ( Amer) Est GFR (Non-Af Amer) BUN/Creatinine Ratio Glucose POC Glucose 148 H 153 H Estimat Average Glucose Hemoglobin A1c Calcium Total Bilirubin AST ALT Alkaline Phosphatase Total Protein Albumin Globulin Albumin/Globulin Ratio Fluid Slide Review Pleural Fluid Source Pleural Color Pleural Appearance Pleural WBC Pleural RBC Pleural Polynuclear % Pleural Mononuclear % Microbiology 09/11/18 11:15 Pleural Fluid Gram Stain - Final 09/11/18 11:15 Pleural Fluid Aerobic and Anaerobic Culture - Preliminary No growth to date. 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
[2018-09-12] MEDS ORDERED: ENOXAPARIN INJ 30 MG/0.3 ML SYR SQ ONE (16:30)
[2018-09-12] MEDS: ALUMINUM/MAGNESIUM SUSP 30 ML UDC PO PRN (16:53)
[2018-09-12 17:09] LABS: Prothrombin Time 10.4 Seconds (9.0-12.0)
[2018-09-12] MEDS: ALPRAZolam 0.25 MG TABLET PO PRN (20:47)
[2018-09-12] MEDS: HydrALAZINE TAB 50 MG TAB PO SCH (20:47)
[2018-09-12] MEDS: ATORVASTATIN 40 MG TAB PO SCH (20:48)
[2018-09-13] MEDS: ALBUT/IPRATROP 3MG/0.5MG NEB 3 ML VIAL NEB PRN ×4 (01:18→20:25)
[2018-09-13] MEDS: ZOLPIDEM TARTRATE 5 MG TAB PO PRN (01:46)
[2018-09-13] MEDS: LEVOTHYROXINE SODIUM 150 MCG TABLET PO SCH (06:20)
[2018-09-13] MEDS: INSULIN ASPART 100 UNITS/ML 3 ML PEN SC SCH ×4 (07:57→21:20)
[2018-09-13] MEDS: AMLODIPINE BESYLATE 5 MG TAB PO SCH (07:59)
[2018-09-13] MEDS: METOPROLOL SUCC 50MG EXT REL TAB PO SCH (08:00)
[2018-09-13] MEDS: ISOSORBIDE MONO EXTENDED REL 60 MG TABCR PO SCH (08:00)
[2018-09-13] MEDS: ENOXAPARIN INJ 30 MG/0.3 ML SYR SQ SCH (08:04)
[2018-09-13] MEDS ORDERED: FUROSEMIDE 40 MG TAB PO ONE ×2 (09:02→17:11)
[2018-09-13 09:19] LABS: Hematocrit (blood only) 30.4 % (42-52); Hemoglobin 9.3 g/dL (14.0-18.0); Mean Corpuscular Hgb Conc 30.6 g/dL (32-36); Mean Corpuscular Volume 105.6 fL (80-100); Mean Platelet Volume 10.3 fL (7.4-10.4); Platelet Count 118 K/uL (130-400); RDW Coefficient of Variation 16.9 % (11.5-14.5); RDW Standard Deviation 64.9 fL (36.4-46.3); Red Blood Count 2.88 M/uL (4.7-6.1); White Blood Count 92.52 K/uL (4.8-10.8)
[2018-09-13 09:32] LABS: ALC (manual) 73.18 K/uL (1.2-3.4); Lymphocytes # (manual) 73.18 K/uL (1.2-3.4); Lymphocytes % (manual) 79.1 %; Monocytes # (manual) 1.67 K/uL (0.11-0.59); Monocytes % (manual) 1.8 %; Neutrophils % (manual) 1.8 %; Prolymphocyte # (manual) 16.01 K/uL (0-0); Prolymphocyte % (manual) 17.3 %; Smudge Cells Present
--- NOTE | 2018-09-13 10:09 | Nephrology Progress Note ---
Date of Service September 13, 2018 Assessment & Plan (1) Acute kidney injury: Mr. Marcum is an 83 year old white male admitted to [facility] for evaluation of dyspnea and wheezing. 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 CXR revealed mild pulmonary congestion and small bilateral pleural effusions. 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 He has KINGA on CKD. Available records show that creatinine had risen from 2.3 to 2.7 over the last 12 months. Creatinine is now up to 3.5. -- UA +2 protein and trace blood. Microscopy acellular. -- CPK was not elevated. -- Renal US did not reveal evidence of obstruction. -- Repeat RPP tomorrow AM. -- No acute indication for HD at this time. Will monitor. -- Recent clinic notes from Dr. Moreira ([facility]) have been requested. (2) Chronic kidney disease: -- Available records show that creatinine had risen from 2.3 to 2.7 over the last 12 months. -- Wyatt notes that he had discussed potential future considerations for HD with Dr. Moreira in the past. Wyatt had deferred scheduling AVF placement. He is receptive to HD if indicated. (3) CLL (chronic lymphocytic leukemia): -- Hematology consultation reviewed. -- No emergent plan for treatment. -- Hemoglobin stable. (4) Hyperkalemia: -- Improved following administration of Kayexelate. (5) CHF (congestive heart failure): -- CXR w/ mild vascular congestion and small bilateral effusions. -- TTE demonstrated increased RVSP with mild concentric LVH. No significant valvular heart disease. -- Question an underlying component of pulmonary hypertension which may require additional evaluation. -- Net negative fluid balance (- 500 ml) without diuretics. Furosemide 40 mg daily restarted today. -- Will continue to monitor. -- Plan of care discussed with Dr. Jaramillo this morning. Subjective No acute events overnight. Wyatt reports improvement in dyspnea. CAMARENA persists. Wheeze persists. Appetite is reduced. Activity tolerance is reduced. No fevers or chills. No chest pain or palpitations. Review of Systems All systems reviewed & are unremarkable except as noted in HPI & below Physical Exam 2 Vital Signs (Past 24 Hours): Last Vital Signs Temp 36.5 C 09/13/18 07:48 Pulse 65 09/13/18 07:48 Resp 22 09/13/18 07:48 BP 154/69 H 09/13/18 07:48 Pulse Ox 89 L 09/13/18 07:48 Constitutional: well developed and well nourished Eyes: PERRL, conjunctivae normal, anicteric sclerae ENMT: Mouth: + oral mucosal abnormality (dry mucous membranes) Neck: trachea midline, no thyromegaly Respiratory: normal respiratory effort, lungs clear to auscultation Cardiovascular: RRR, no murmur, no edema Vessels: no JVD Extremities: no edema Gastrointestinal (Abdomen): normal bowel sounds, soft, nontender, no hepatosplenomegaly Musculoskeletal: Extremities: no cyanosis and no clubbing Skin: + turgor decreased Neurologic: awake Motor/Sensory: no tremor and no asterixis Psychiatric: Orientation: oriented to person Affect: euthymic affect Results & Data Laboratory Results Laboratory Results - last 24 hr 09/11/18 09/12/18 09/12/18 11:15 06:51 11:06 WBC RBC Hgb Hct MCV MCH MCHC RDW Std Deviation RDW Coeff of Maren Plt Count MPV Neutrophils % (Manual) Lymphocytes % (Manual) Prolymphocyte % Monocytes % (Manual) Neutrophils # (Manual) Total Absolute Neuts Lymphocytes # (Manual) Prolymphocyte # Total Abs Lymphocytes Monocytes # (Manual) Smudge Cells Blood Smear Review PT INR POC Glucose 153 H Estimat Average Glucose 143 Hemoglobin A1c 6.6 H Total Creatine Kinase Fluid Slide Review 09/12/18 09/12/18 09/12/18 16:18 16:29 20:30 WBC RBC Hgb Hct MCV MCH MCHC RDW Std Deviation RDW Coeff of Maren Plt Count MPV Neutrophils % (Manual) Lymphocytes % (Manual) Prolymphocyte % Monocytes % (Manual) Neutrophils # (Manual) Total Absolute Neuts Lymphocytes # (Manual) Prolymphocyte # Total Abs Lymphocytes Monocytes # (Manual) Smudge Cells Blood Smear Review PT 10.4 INR 1.0 POC Glucose 148 H 221 H Estimat Average Glucose Hemoglobin A1c Total Creatine Kinase Fluid Slide Review 09/13/18 09/13/18 09/13/18 06:58 07:07 07:29 WBC 92.52 H* RBC 2.88 L Hgb 9.3 L Hct 30.4 L MCV 105.6 H MCH 32.3 MCHC 30.6 L RDW Std Deviation 64.9 H RDW Coeff of Maren 16.9 H Plt Count 118 L MPV 10.3 Neutrophils % (Manual) 1.8 Lymphocytes % (Manual) 79.1 Prolymphocyte % 17.3 Monocytes % (Manual) 1.8 Neutrophils # (Manual) 1.67 Total Absolute Neuts 1.67 Lymphocytes # (Manual) 73.18 H Prolymphocyte # 16.01 H Total Abs Lymphocytes 73.18 H Monocytes # (Manual) 1.67 H Smudge Cells Present Blood Smear Review Cancelled PT INR POC Glucose 124 H Estimat Average Glucose Hemoglobin A1c Total Creatine Kinase 54 Fluid Slide Review
[2018-09-13 11:12] LABS: BUN Creatinine Ratio 16.5 (10-20); Calcium 8.6 mg/dl (8.5-10.1); Creatinine Clr Calc Pharmacy 16.1 ml/min; Est GFR (Non-African American) 14.6; Magnesium 2.8 mg/dl (1.8-2.4); Potassium 5.1 mmol/L (3.5-5.1)
[2018-09-13] MEDS: HydrALAZINE TAB 50 MG TAB PO SCH ×3 (12:08→21:18)
[2018-09-13] MEDS: CALCITRIOL 0.25 MCG CAPSULE PO SCH (12:08)
[2018-09-13] MEDS: MAGNESIUM OXIDE 400 MG TAB PO SCH ×2 (12:09→12:12)
[2018-09-13] MEDS: PANTOprazole 40 MG TAB PO SCH (12:09)
[2018-09-13] MEDS: ASPIRIN 81 MG ECTAB PO SCH (12:09)
--- NOTE | 2018-09-13 12:57 | Progress Note ---
DATE: 09/13/2018 Mr. Marcum states he had "a spell," in which he did not feel as well as he did in the last few days. He states that it hurts him to take a breath. We uploaded his images from [facility] and a CT scan done 4 days ago shows a homogenous effusion on the right. It is smaller on the left. In addition, he has markedly enlarged lymph nodes which are not a surprise. I reviewed his cytology with pathology, it does not appear that we are dealing with an obvious malignant effusion, although it could be related to his CML. His white count is over 90,000 from his CML. At this point, from a thoracic surgery standpoint, I really have nothing to add unless the oncologist feels that a sampling of his lymph nodes would be helpful. LEIA
--- NOTE | 2018-09-13 14:10 | Hospitalist Progress Note ---
Date of Service September 13, 2018 Assessment & Plan (1) Shortness of breath: (2) Anemia: (3) CLL (chronic lymphocytic leukemia): (4) Chest pain: (5) Diabetes: 83 y/o M transfer from [facility] due to CHF exacerbation, caren pleural effusion associated with progressive SOB x 2 weeks. Hx HTN, HLD, COPD, Chronic O2 dependent with 2 L of nasal cannula oxygen, DM II , hypothyroid, CLL, CKD III. Acute on chronic CHF exacerbation and pleural effusion with worsening SOB: Seems labored breathing back to the first 1-2 days upon admission his labored breathing significantly improved after right side thoracentesis with 815ml pleural fluid removed Likely multifactorial secondary to worsening pleural effusions with CHF exac, and reduced lung capacity due to COPD. Possible pulmonary hypertension, thoracentesis was done removed 850ml brown mild pink pleural fluid on September, Pleural fluid sent to the basic routine lab cytology and culture and sensitivity. So far no growth, cytology negative, routine testing shows transient irritation, likely from CHF exacerbation, Yesterday was hold diuretic because of worsening kidney function, will give 40 mg Lasix today, in the morning, nephrology input appreciated, however patient has not been collection of urine output since this morning, Possible CHF exacerbation, However echo shows normal LVEF, diastolic dysfunction not able to determine creatinine is improving after holding Lasix yesterday, COPD Possible exacerbation with chronic respiratory failure O2 dependent, possible pulmonary hypertension, will give more diuretics, may planning to have right for the study of pulmonary hypertension Continue with an 02 protocol and scheduled nebs Acute on chronic CKD, 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 No hydronephrosis. 2. Moderate splenomegaly. 3. Moderate renal cortical thinning. CLL white count is better today, Patient has been refused tx for CLL, DM II, Hypothyroid, HTN; Continue home medication, Continue Hold HCTZ/Losartan, cont Metoprolol , Hydralazine provided scheduled and PRN, increase scheduled hydralazine 25 mg 3 times daily to 50 mg 3 times daily Discussed with patient about the care plan, she was seen by Dr. Aguilera before, will have outpatient follow-up with ras em, setting up Full code - SCDs Lovenox Dose Subjective was having sob spell last night, is better after breathing treatment, obvious labored breathing when talking, occasional cough and wheezing, however has been able to sitting up and walk in the room,, Generalized weakness Review of Systems Constitutional: Positive, weakness, or fatigue Respiratory: See HPI, moderate dyspnea on exertion Cardiac: No chest pain, palpitation or lower extremity swelling Abdomen: No pain, No nausea, No vomiting, No diarrhea, Musculoskeletal: No joint pain, No muscle pain, No swelling, No calf pain, No problem reported : No dysuria, No urinary frequency, No incontinence, No hematuria Neurologic: No paralysis, No weakness, No numbness/tingling, No vertigo, No balance problems Psychiatric: No depression symptoms, No anhedonism, No anxiety, No insomnia, No substance abuse Heme: No abnormal bleeding/bruising, No clotting problems, No swollen lymph nodes, No night sweats Skin: No rash, No itch, No new/changing skin lesions, No color change, No bleeding Physical Exam 2 Vital Signs (Past 24 Hours): Last Vital Signs Temp 36.3 C L 09/13/18 12:11 Pulse 57 L 09/13/18 12:11 Resp 22 09/13/18 12:11 BP 145/70 H 09/13/18 12:11 Pulse Ox 98 09/13/18 12:11 Physical Exam: General Appearance: Frail, chronically ill looking, WD/WN, no apparent distress, Eyes: normal inspection, PERRL, EOMI, sclerae normal ENT: normal ENT inspection, hearing grossly normal, pharynx normal Neck: supple, no adenopathy, thyroid normal, no JVD, no carotid bruits, trachea midline Respiratory/Chest: chest non-tender, Decreased breath sounds, Worse in bilateral lower lung, sporatic wheezing, no crackles, Cardiovascular: regular rate, rhythm, no JVD, no murmur Abdomen: normal bowel sounds, non tender, soft, no organomegaly, Extremities: normal range of motion, non-tender, normal inspection, trace pedal edema, no calf tenderness, normal capillary refill , pelvis stable, joint has no limited range of motion, capillary refill is normal, no cyanosis clubbing Neurologic/Psychiatric: 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 as tested, no motor/sensory deficits, alert, normal mood/affect, oriented x 3 Skin: normal color, warm/dry, no rash Lymphatic: no adenopathy Results & Data Laboratory Results Laboratory Results - last 24 hr 09/12/18 09/12/18 09/12/18 16:18 16:29 20:30 WBC RBC Hgb Hct MCV MCH MCHC RDW Std Deviation RDW Coeff of Maren Plt Count MPV Neutrophils % (Manual) Lymphocytes % (Manual) Prolymphocyte % Monocytes % (Manual) Neutrophils # (Manual) Total Absolute Neuts Lymphocytes # (Manual) Prolymphocyte # Total Abs Lymphocytes Monocytes # (Manual) Smudge Cells Blood Smear Review PT 10.4 INR 1.0 Sodium Potassium Chloride Carbon Dioxide Anion Gap BUN Creatinine Est Cr Clr Drug Dosing Est GFR ( Amer) Est GFR (Non-Af Amer) BUN/Creatinine Ratio Glucose POC Glucose 148 H 221 H Calcium Phosphorus Magnesium Total Creatine Kinase NT-Pro-B Natriuret Pep 09/13/18 09/13/18 09/13/18 06:58 07:07 07:29 WBC 92.52 H* RBC 2.88 L Hgb 9.3 L Hct 30.4 L MCV 105.6 H MCH 32.3 MCHC 30.6 L RDW Std Deviation 64.9 H RDW Coeff of Maren 16.9 H Plt Count 118 L MPV 10.3 Neutrophils % (Manual) 1.8 Lymphocytes % (Manual) 79.1 Prolymphocyte % 17.3 Monocytes % (Manual) 1.8 Neutrophils # (Manual) 1.67 Total Absolute Neuts 1.67 Lymphocytes # (Manual) 73.18 H Prolymphocyte # 16.01 H Total Abs Lymphocytes 73.18 H Monocytes # (Manual) 1.67 H Smudge Cells Present Blood Smear Review Cancelled PT INR Sodium Potassium Chloride Carbon Dioxide Anion Gap BUN Creatinine Est Cr Clr Drug Dosing Est GFR ( Amer) Est GFR (Non-Af Amer) BUN/Creatinine Ratio Glucose POC Glucose 124 H Calcium Phosphorus Magnesium Total Creatine Kinase 54 NT-Pro-B Natriuret Pep 09/13/18 09/13/18 10:34 11:42 WBC RBC Hgb Hct MCV MCH MCHC RDW Std Deviation RDW Coeff of Maren Plt Count MPV Neutrophils % (Manual) Lymphocytes % (Manual) Prolymphocyte % Monocytes % (Manual) Neutrophils # (Manual) Total Absolute Neuts Lymphocytes # (Manual) Prolymphocyte # Total Abs Lymphocytes Monocytes # (Manual) Smudge Cells Blood Smear Review PT INR Sodium 140 Potassium 5.1 Chloride 109 H Carbon Dioxide 23 Anion Gap 8.0 BUN 60 H Creatinine 3.62 H Est Cr Clr Drug Dosing 16.1 Est GFR ( Amer) 17.0 Est GFR (Non-Af Amer) 14.6 BUN/Creatinine Ratio 16.5 Glucose 199 H POC Glucose 186 H Calcium 8.6 Phosphorus 4.0 Magnesium 2.8 H Total Creatine Kinase NT-Pro-B Natriuret Pep 2804 H _ (1) Anemia Anemia type: bone marrow failure Iron deficiency anemia type: Vitamin B12 deficiency anemia type: Folate deficiency anemia type: Bone marrow failure anemia type: myelophthisis Hemolytic anemia type: Other causes of anemia: Chronic kidney disease stage: 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
[2018-09-13] MEDS: ATORVASTATIN 40 MG TAB PO SCH (21:18)
[2018-09-13] MEDS: ALUMINUM/MAGNESIUM SUSP 30 ML UDC PO PRN (23:12)
[2018-09-13] MEDS: ALPRAZolam 0.25 MG TABLET PO PRN (23:12)
[2018-09-14] MEDS: ZOLPIDEM TARTRATE 5 MG TAB PO PRN (01:10)
[2018-09-14] MEDS: LEVOTHYROXINE SODIUM 150 MCG TABLET PO SCH (06:01)
[2018-09-14] MEDS: ALBUT/IPRATROP 3MG/0.5MG NEB 3 ML VIAL NEB PRN ×3 (07:06→20:29)
[2018-09-14] MEDS: INSULIN ASPART 100 UNITS/ML 3 ML PEN SC SCH ×4 (07:46→21:25)
[2018-09-14] MEDS: ENOXAPARIN INJ 30 MG/0.3 ML SYR SQ SCH (07:53)
[2018-09-14] MEDS: HydrALAZINE TAB 50 MG TAB PO SCH ×3 (07:56→21:27)
[2018-09-14] MEDS: PANTOprazole 40 MG TAB PO SCH (07:56)
[2018-09-14] MEDS: METOPROLOL SUCC 50MG EXT REL TAB PO SCH (07:56)
[2018-09-14] MEDS: MAGNESIUM OXIDE 400 MG TAB PO SCH (07:56)
[2018-09-14] MEDS: ASPIRIN 81 MG ECTAB PO SCH (07:56)
[2018-09-14] MEDS: AMLODIPINE BESYLATE 5 MG TAB PO SCH (07:56)
[2018-09-14] MEDS: ISOSORBIDE MONO EXTENDED REL 60 MG TABCR PO SCH (07:56)
--- NOTE | 2018-09-14 07:58 | XRay Report ---
XR chest 1V portable CLINICAL HISTORY: 83 years-old Male presenting with effusion . TECHNIQUE: Portable upright AP view of the chest was obtained. COMPARISON: 09/11/2018. FINDINGS: Atherosclerosis of the aortic arch. Cardiac silhouette mildly enlarged. Pulmonary vascular prominence and bronchial wall thickening not significantly changed from prior. Diffuse added density of the deangelo gs, which is slightly increased from prior with associated with slightly worsened lung aeration. Incr eased minimal vague bibasilar opacities. Suspected underlying trace bilateral pleural effusions. No p neumothorax. Degenerative changes of the thoracic spine. External leads project over the upper abdome n degrading evaluation in this region. IMPRESSION: 1. Trace bilateral pleural effusions slightly increased from prior. 2. Cardiac megaly with persistent volume overload/congestive change and possible slight worsening of pulmonary edema. 3. Slightly worsened lung aeration with increasing bibasilar atelectasis. Electronically signed by: Francis Cary M.D. 09/14/2018 7:56 AM
[2018-09-14 08:32] LABS: Hematocrit (blood only) 31.6 % (42-52); Hemoglobin 9.8 g/dL (14.0-18.0); Mean Corpuscular Volume 104.3 fL (80-100); Platelet Count 111 K/uL (130-400); RDW Standard Deviation 63.2 fL (36.4-46.3); Red Blood Count 3.03 M/uL (4.7-6.1); White Blood Count 91.08 K/uL (4.8-10.8)
[2018-09-14 08:34] LABS: Albumin Level 3.5 gm/dl (3.4-5.0); BUN Creatinine Ratio 16.9 (10-20); Calcium 8.5 mg/dl (8.5-10.1); Creatinine Clr Calc Pharmacy 15.1 ml/min; Est GFR (African American) 15.6; Est GFR (Non-African American) 13.5; Magnesium 2.6 mg/dl (1.8-2.4); Phosphorus 4.5 mg/dl (2.5-4.9); Potassium 5.1 mmol/L (3.5-5.1)
[2018-09-14 09:33] LABS: ALC (manual) 78.78 K/uL (1.2-3.4); Lymphocytes # (manual) 78.78 K/uL (1.2-3.4); Lymphocytes % (manual) 86.5 %; Monocytes # (manual) 0.73 K/uL (0.11-0.59); Monocytes % (manual) 0.8 %; Neutrophils % (manual) 3.4 %; Prolymphocyte # (manual) 8.47 K/uL (0-0); Prolymphocyte % (manual) 9.3 %; Smudge Cells Present
--- NOTE | 2018-09-14 10:32 | Nephrology Progress Note ---
Date of Service September 14, 2018 Assessment & Plan (1) Acute kidney injury: Mr. Marcum is an 83 year old white male admitted to [facility] for evaluation of dyspnea and wheezing. 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 CXR revealed mild pulmonary congestion and small bilateral pleural effusions. 850 ml of fluid removed from the right lung. Fluid cytology negative. 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 He has KINGA on CKD. Available records show that creatinine had risen from 2.3 to 2.7 over the last 12 months. Creatinine is now up to 3.8. -- UA +2 protein and trace blood. Microscopy acellular. -- CPK was not elevated. -- Renal US did not reveal evidence of obstruction. -- Repeat RPP tomorrow AM. -- No acute indication for HD at this time. I had a long conversation with Mr. Marcum this morning about potential indications for dialysis. Unfortunately, we have not seen significant improvement in kidney function. Between his CLL, chronic lung disease and CKD, he is in a difficult situation and I explained that hemodialysis may be necessary for his situation to improve. He is reticent but considering. His daughter Kaelyn will be at the hospital this afternoon and I will discuss in more detail with her when she arrives. -- Close monitoring will be provided while diuretics are adjusted as necessary. If there is continued worsening of kidney function over the weekend, I would suggest that we plan for starting dialysis Monday if this is consistent with the patient's goals of care. (2) Chronic kidney disease: -- Acute on advanced baseline kidney function. -- Dr. Moreira had discussed possible need to start HD with Wyatt in the past. Wyatt had deferred scheduling AVF placement. (3) CLL (chronic lymphocytic leukemia): -- Hematology consultation reviewed. -- No emergent plan for treatment. -- Hemoglobin stable. (4) Hyperkalemia: -- Improved following administration of Kayexelate -- Potassium will be monitored closely -- Low K diet (5) CHF (congestive heart failure): -- CXR w/ mild vascular congestion and small bilateral effusions. -- TTE demonstrated increased RVSP with mild concentric LVH. No significant valvular heart disease. LVEF preserved. -- I suspect that a component of the patient's condition is related to pulmonary hypertension (likely related to underlying pulmonary disease and complicated by CLL and kidney function) -- I suggest taht we consider R heart cath to determine the potential benefit of continued aggressive diuresis. -- Net negative fluid balance -100 ml with furosemide 40 mg x 2 doses yesterday. -- Additional 40 mg furosemide provided this morning. -- Will continue to monitor. -- Plan of care discussed with Dr. Jaramillo this morning. Subjective No acute events overnight. Wyatt reports improvement in breathing but reports persistent activity limiting dyspnea. He does not feel that breathing is at baseline though he notes that he is starting to feel that concepcion would be comfortable going home. He continues to describe a persistent wheeze. He has stable orthopnea. He reports discomfort in his left flank which has been chronic , waxing and waning for several months. He was told in the past that this was related to his spleen. He reports brisk urine output with diuretics yesterday. Wyatt denies any fevers or chills. He denies chest pain or palpitations. His appetite is good. He denies nausea. Review of Systems All systems reviewed & are unremarkable except as noted in HPI & below Physical Exam 2 Vital Signs (Past 24 Hours): Last Vital Signs Temp 36.6 C 09/14/18 07:32 Pulse 71 09/14/18 07:32 Resp 20 09/14/18 07:32 BP 145/70 H 09/14/18 07:32 Pulse Ox 96 09/14/18 07:32 Constitutional: well developed and well nourished Eyes: PERRL, conjunctivae normal, anicteric sclerae ENMT: Mouth: + oral mucosal abnormality (dry mucous membranes) Neck: trachea midline, no thyromegaly Respiratory: normal respiratory effort, lungs clear to auscultation Cardiovascular: RRR, no murmur, no edema Vessels: no JVD Extremities: no edema Gastrointestinal (Abdomen): normal bowel sounds, soft, nontender, no hepatosplenomegaly Musculoskeletal: Extremities: no cyanosis and no clubbing Skin: + turgor decreased Neurologic: awake Motor/Sensory: no tremor and no asterixis Psychiatric: Orientation: oriented to person Affect: euthymic affect Results & Data Laboratory Results Laboratory Results - last 24 hr 09/13/18 09/13/18 09/13/18 10:34 10:34 11:42 WBC RBC Hgb Hct MCV MCH MCHC RDW Std Deviation RDW Coeff of Maren Plt Count MPV Neutrophils % (Manual) Lymphocytes % (Manual) Prolymphocyte % Monocytes % (Manual) Neutrophils # (Manual) Total Absolute Neuts Lymphocytes # (Manual) Prolymphocyte # Total Abs Lymphocytes Monocytes # (Manual) Smudge Cells Sodium 140 Potassium 5.1 Chloride 109 H Carbon Dioxide 23 Anion Gap 8.0 BUN 60 H Creatinine 3.62 H Est Cr Clr Drug Dosing 16.1 Est GFR ( Amer) 17.0 Est GFR (Non-Af Amer) 14.6 BUN/Creatinine Ratio 16.5 Glucose 199 H POC Glucose 186 H Uric Acid Calcium 8.6 Phosphorus 4.0 Magnesium 2.8 H NT-Pro-B Natriuret Pep 2804 H Albumin TSH 1.350 09/13/18 09/13/18 09/13/18 16:38 16:42 16:42 WBC RBC Hgb Hct MCV MCH MCHC RDW Std Deviation RDW Coeff of Maren Plt Count MPV Neutrophils % (Manual) Lymphocytes % (Manual) Prolymphocyte % Monocytes % (Manual) Neutrophils # (Manual) Total Absolute Neuts Lymphocytes # (Manual) Prolymphocyte # Total Abs Lymphocytes Monocytes # (Manual) Smudge Cells Sodium Potassium Chloride Carbon Dioxide Anion Gap BUN Creatinine Est Cr Clr Drug Dosing Est GFR ( Amer) Est GFR (Non-Af Amer) BUN/Creatinine Ratio Glucose POC Glucose 155 H Uric Acid 8.6 H Calcium Phosphorus 4.4 Magnesium NT-Pro-B Natriuret Pep Albumin TSH 09/13/18 09/14/18 09/14/18 20:22 07:39 08:04 WBC RBC Hgb Hct MCV MCH MCHC RDW Std Deviation RDW Coeff of Maren Plt Count MPV Neutrophils % (Manual) Lymphocytes % (Manual) Prolymphocyte % Monocytes % (Manual) Neutrophils # (Manual) Total Absolute Neuts Lymphocytes # (Manual) Prolymphocyte # Total Abs Lymphocytes Monocytes # (Manual) Smudge Cells Sodium Cancelled Potassium Cancelled Chloride Cancelled Carbon Dioxide Cancelled Anion Gap Cancelled BUN Cancelled Creatinine Cancelled Est Cr Clr Drug Dosing Cancelled Est GFR ( Amer) Cancelled Est GFR (Non-Af Amer) Cancelled BUN/Creatinine Ratio Cancelled Glucose Cancelled POC Glucose 168 H 141 H Uric Acid Calcium Cancelled Phosphorus Cancelled Magnesium NT-Pro-B Natriuret Pep Albumin Cancelled TSH 09/14/18 09/14/18 08:04 08:04 WBC 91.08 H* RBC 3.03 L Hgb 9.8 L Hct 31.6 L MCV 104.3 H MCH 32.3 MCHC 31.0 L RDW Std Deviation 63.2 H RDW Coeff of Maren 17.0 H Plt Count 111 L MPV 10.0 Neutrophils % (Manual) 3.4 Lymphocytes % (Manual) 86.5 Prolymphocyte % 9.3 Monocytes % (Manual) 0.8 Neutrophils # (Manual) 3.10 Total Absolute Neuts 3.10 Lymphocytes # (Manual) 78.78 H Prolymphocyte # 8.47 H Total Abs Lymphocytes 78.78 H Monocytes # (Manual) 0.73 H Smudge Cells Present Sodium 139 Potassium 5.1 Chloride 108 H Carbon Dioxide 23 Anion Gap 8.0 BUN 66 H Creatinine 3.87 H Est Cr Clr Drug Dosing 15.1 Est GFR ( Amer) 15.6 Est GFR (Non-Af Amer) 13.5 BUN/Creatinine Ratio 16.9 Glucose 132 H POC Glucose Uric Acid Calcium 8.5 Phosphorus 4.5 Magnesium 2.6 H NT-Pro-B Natriuret Pep Albumin 3.5 TSH
[2018-09-14] MEDS ORDERED: FUROSEMIDE 40 MG TAB PO ONE (11:00)
--- NOTE | 2018-09-14 14:02 | Progress Note ---
DATE: 09/14/2018 The patient was seen today. His x-ray was checked this morning and really has not changed much. He has reaccumulated very little fluid on the right. He has a small amount of fluid on the left. His is on nasal prongs at 98% saturations. There are multiple other issues with this patient, but at this point, I would not address his pleural effusions or his lymphadenopathy. His renal function is worsening and Dr. Marcos Pacheco is considering offering him hemodialysis next week. We will standby in this patient, but I would not do anything different at this point.
--- NOTE | 2018-09-14 15:29 | Hospitalist Progress Note ---
Date of Service September 14, 2018 Assessment & Plan (1) Shortness of breath: (2) Anemia: (3) CLL (chronic lymphocytic leukemia): (4) Chest pain: (5) Diabetes: 83 y/o M transfer from [facility] due to CHF exacerbation, caren pleural effusion associated with progressive SOB x 2 weeks. Hx HTN, HLD, COPD, Chronic O2 dependent with 2 L of nasal cannula oxygen, DM II , hypothyroid, CLL, CKD III. Acute on chronic CHF exacerbation and pleural effusion with worsening SOB: still labored breathing his labored breathing was significantly improved after right side thoracentesis with 815ml pleural fluid removed Likely multifactorial secondary to worsening pleural effusions with CHF exac, and reduced lung capacity due to COPD. Possible pulmonary hypertension, thoracentesis was done removed 850ml brown mild pink pleural fluid on September, Pleural fluid sent to the basic routine lab cytology and culture and sensitivity. So far no growth, cytology negative, routine testing shows transient irritation, likely from CHF exacerbation, has been giving 40 mg Lasix yesterday /today, per nephrology input appreciated , renal function seems to continue to decline yesterday 3.6 today 3.8 creatinine Possible CHF exacerbation, However echo shows normal LVEF, diastolic dysfunction not able to determine COPD Possible exacerbation with chronic respiratory failure O2 dependent, possible pulmonary hypertension, will give more diuretics, may planning to have right heart cath for the study of pulmonary hypertension Continue with an 02 protocol and scheduled nebs Acute on chronic CKD, Per 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 No hydronephrosis. 2. Moderate splenomegaly. 3. Moderate renal cortical thinning. 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 Aguilera before, will have outpatient follow-up with ras em, setting up Full code - SCDs Lovenox Subjective doing the same as yesterday, possible better of labored breathing when talking, occasional cough and wheezing, has been able to sitting up and walk in the room ,Generalized weakness Review of Systems Constitutional: Positive, weakness, or fatigue Respiratory: See HPI, moderate dyspnea on exertion Cardiac: No chest pain, palpitation or lower extremity swelling Abdomen: No pain, No nausea, No vomiting, No diarrhea, Musculoskeletal: No joint pain, No muscle pain, No swelling, No calf pain, No problem reported : No dysuria, No urinary frequency, No incontinence, No hematuria Neurologic: No paralysis, No weakness, No numbness/tingling, No vertigo, No balance problems Psychiatric: No depression symptoms, No anhedonism, No anxiety, No insomnia, No substance abuse Heme: No abnormal bleeding/bruising, No clotting problems, No swollen lymph nodes, No night sweats Skin: No rash, No itch, No new/changing skin lesions, No color change, No bleeding Physical Exam 2 Vital Signs (Past 24 Hours): Last Vital Signs Temp 36.6 C 09/14/18 14:52 Pulse 64 09/14/18 14:52 Resp 20 09/14/18 14:52 BP 154/70 H 09/14/18 14:52 Pulse Ox 97 09/14/18 14:52 Physical Exam: General Appearance: Frail, chronically ill looking, WD/WN, no apparent distress, Eyes: normal inspection, PERRL, EOMI, sclerae normal ENT: normal ENT inspection, hearing grossly normal, pharynx normal Neck: supple, no adenopathy, thyroid normal, no JVD, no carotid bruits, trachea midline Respiratory/Chest: chest non-tender, Decreased breath sounds, Worse in bilateral lower lung, occasional wheezing, no crackles, Cardiovascular: regular rate, rhythm, no JVD, no murmur Abdomen: normal bowel sounds, non tender, soft, no organomegaly, Extremities: normal range of motion, non-tender, normal inspection, trace pedal edema, no calf tenderness, normal capillary refill , pelvis stable, joint has no limited range of motion, capillary refill is normal, no cyanosis clubbing Neurologic/Psychiatric: chemistry account manager II-XII nml as tested, no motor/sensory deficits, alert, normal mood/affect, oriented x 3 Skin: normal color, warm/dry, no rash Lymphatic: no adenopathy Results & Data Laboratory Results Laboratory Results - last 24 hr 09/13/18 09/13/18 09/13/18 16:38 16:42 16:42 WBC RBC Hgb Hct MCV MCH MCHC RDW Std Deviation RDW Coeff of Maren Plt Count MPV Neutrophils % (Manual) Lymphocytes % (Manual) Prolymphocyte % Monocytes % (Manual) Neutrophils # (Manual) Total Absolute Neuts Lymphocytes # (Manual) Prolymphocyte # Total Abs Lymphocytes Monocytes # (Manual) Smudge Cells Sodium Potassium Chloride Carbon Dioxide Anion Gap BUN Creatinine Est Cr Clr Drug Dosing Est GFR ( Amer) Est GFR (Non-Af Amer) BUN/Creatinine Ratio Glucose POC Glucose 155 H Uric Acid 8.6 H Calcium Phosphorus 4.4 Magnesium Albumin 09/13/18 09/14/18 09/14/18 20:22 07:39 08:04 WBC RBC Hgb Hct MCV MCH MCHC RDW Std Deviation RDW Coeff of Maren Plt Count MPV Neutrophils % (Manual) Lymphocytes % (Manual) Prolymphocyte % Monocytes % (Manual) Neutrophils # (Manual) Total Absolute Neuts Lymphocytes # (Manual) Prolymphocyte # Total Abs Lymphocytes Monocytes # (Manual) Smudge Cells Sodium Cancelled Potassium Cancelled Chloride Cancelled Carbon Dioxide Cancelled Anion Gap Cancelled BUN Cancelled Creatinine Cancelled Est Cr Clr Drug Dosing Cancelled Est GFR ( Amer) Cancelled Est GFR (Non-Af Amer) Cancelled BUN/Creatinine Ratio Cancelled Glucose Cancelled POC Glucose 168 H 141 H Uric Acid Calcium Cancelled Phosphorus Cancelled Magnesium Albumin Cancelled 09/14/18 09/14/18 09/14/18 08:04 08:04 11:12 WBC 91.08 H* RBC 3.03 L Hgb 9.8 L Hct 31.6 L MCV 104.3 H MCH 32.3 MCHC 31.0 L RDW Std Deviation 63.2 H RDW Coeff of Maren 17.0 H Plt Count 111 L MPV 10.0 Neutrophils % (Manual) 3.4 Lymphocytes % (Manual) 86.5 Prolymphocyte % 9.3 Monocytes % (Manual) 0.8 Neutrophils # (Manual) 3.10 Total Absolute Neuts 3.10 Lymphocytes # (Manual) 78.78 H Prolymphocyte # 8.47 H Total Abs Lymphocytes 78.78 H Monocytes # (Manual) 0.73 H Smudge Cells Present Sodium 139 Potassium 5.1 Chloride 108 H Carbon Dioxide 23 Anion Gap 8.0 BUN 66 H Creatinine 3.87 H Est Cr Clr Drug Dosing 15.1 Est GFR ( Amer) 15.6 Est GFR (Non-Af Amer) 13.5 BUN/Creatinine Ratio 16.9 Glucose 132 H POC Glucose 187 H Uric Acid Calcium 8.5 Phosphorus 4.5 Magnesium 2.6 H Albumin 3.5 Microbiology 09/11/18 11:15 Pleural Fluid Gram Stain - Final 09/11/18 11:15 Pleural Fluid Aerobic and Anaerobic Culture - Preliminary No growth to date. 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
[2018-09-14] MEDS: ALUMINUM/MAGNESIUM SUSP 30 ML UDC PO PRN (18:25)
[2018-09-14] MEDS: ATORVASTATIN 40 MG TAB PO SCH (21:24)
[2018-09-15] MEDS: ALPRAZolam 0.25 MG TABLET PO PRN ×2 (00:19→22:37)
[2018-09-15] MEDS: ZOLPIDEM TARTRATE 5 MG TAB PO PRN ×2 (00:24→23:35)
[2018-09-15] MEDS: LEVOTHYROXINE SODIUM 150 MCG TABLET PO SCH (05:57)
[2018-09-15] MEDS: ALBUT/IPRATROP 3MG/0.5MG NEB 3 ML VIAL NEB PRN ×2 (07:13→14:10)
[2018-09-15] MEDS: ENOXAPARIN INJ 30 MG/0.3 ML SYR SQ SCH (07:49)
[2018-09-15] MEDS: INSULIN ASPART 100 UNITS/ML 3 ML PEN SC SCH ×4 (07:49→21:04)
[2018-09-15] MEDS: HydrALAZINE TAB 50 MG TAB PO SCH ×3 (07:57→21:03)
[2018-09-15] MEDS: CALCITRIOL 0.25 MCG CAPSULE PO SCH (07:57)
[2018-09-15] MEDS: MAGNESIUM OXIDE 400 MG TAB PO SCH (07:57)
[2018-09-15] MEDS: PANTOprazole 40 MG TAB PO SCH (07:57)
[2018-09-15] MEDS: ISOSORBIDE MONO EXTENDED REL 60 MG TABCR PO SCH (07:57)
[2018-09-15] MEDS: METOPROLOL SUCC 50MG EXT REL TAB PO SCH (07:57)
[2018-09-15] MEDS: ASPIRIN 81 MG ECTAB PO SCH (07:57)
[2018-09-15] MEDS: AMLODIPINE BESYLATE 5 MG TAB PO SCH (07:58)
[2018-09-15 08:12] LABS: Albumin Level 3.2 gm/dl (3.4-5.0); BUN Creatinine Ratio 16.9 (10-20); Calcium 8.3 mg/dl (8.5-10.1); Creatinine Clr Calc Pharmacy 14.6 ml/min; Phosphorus 4.7 mg/dl (2.5-4.9); Potassium 5.1 mmol/L (3.5-5.1)
[2018-09-15] MEDS ORDERED: FUROSEMIDE 40 MG TAB PO STA (10:34)
--- NOTE | 2018-09-15 11:26 | Nephrology Progress Note ---
Date of Service September 15, 2018 Assessment & Plan (1) Acute kidney injury: Mr. Marcum is an 83 year old white male admitted to [facility] for evaluation of dyspnea and wheezing. 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 CXR revealed mild pulmonary congestion and small bilateral pleural effusions. Thoracentesis performed and 850 ml of fluid removed from the right lung. Fluid cytology negative. 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 He has KINGA on CKD. Available records show that creatinine had risen from 2.3 to 2.7 over the last 12 months. Creatinine is now up to 34.0 mg/dL. -- UA +2 protein and trace blood. Microscopy acellular. -- CPK was not elevated. -- Renal US did not reveal evidence of obstruction. -- Repeat RPP tomorrow AM. -- No acute indication for HD today. The trajectory of renal dysfunction is not favorable unfortunately. Despite diuretics as needed volume status is difficult to regulate with persistent recurrent pulmonary edema and vascular congestion. Creatinine continues to rise. I had a long conversation with Mr. Marcum and his family (Marty Qureshi) this morning about potential indications for dialysis. Between his CLL, chronic lung disease and CKD, HD may be necessary for his situation to improve. He remains reticent. -- Close monitoring will be provided while diuretics are adjusted as necessary. If there is continued worsening of kidney function over the weekend, I would suggest that we plan for starting dialysis Monday if this is consistent with the patient's goals of care. I checked with vascular surgery and they are agreeable to place catheter if needed on Monday. -- Furosemide 80 mg PO provided this AM. -- Renal diet (low K) -- Document I/O's and check metabolic profile daily. (2) Chronic kidney disease: -- Acute on advanced baseline kidney function. -- Dr. Moreira had discussed possible need to start HD with Wyatt in the past. Wyatt had deferred scheduling AVF placement. (3) CLL (chronic lymphocytic leukemia): -- Hematology consultation appreciated. Patient waiting to talk to Dr. Taylor when available. -- No emergent plan for treatment. -- Hemoglobin stable. (4) Hyperkalemia: -- Potassium monitored closely. HyperK on admission treated with kayexalate. -- Low K diet (5) CHF (congestive heart failure): -- CXR w/ mild vascular congestion and small bilateral effusions. -- TTE demonstrated increased RVSP with mild concentric LVH. No significant valvular heart disease. LVEF preserved. -- I suspect that a component of the patient's condition is related to pulmonary hypertension (likely related to underlying pulmonary disease and complicated by CLL and kidney dyfunction) -- Additional 80 mg furosemide provided this morning. -- Will continue to monitor. -- Plan of care discussed with Dr. Jaramillo this morning. Subjective No acute events overnight. Wyatt reports improvement in breathing but reports persistent activity limiting dyspnea. He does not feel that breathing is at baseline though he notes that he is starting to feel that cnocepcion would be comfortable going home. He continues to describe a persistent wheeze. He has stable orthopnea. He reports discomfort in his left flank which has been chronic , waxing and waning for several months. He was told in the past that this was related to his spleen. He reports brisk urine output with diuretics yesterday. Wyatt denies any fevers or chills. He denies chest pain or palpitations. His appetite is good. He denies nausea. Review of Systems All systems reviewed & are unremarkable except as noted in HPI & below Physical Exam 2 Vital Signs (Past 24 Hours): Last Vital Signs Temp 36.8 C 09/15/18 08:07 Pulse 121 H 09/15/18 08:07 Resp 20 09/15/18 08:07 BP 127/57 L 09/15/18 08:07 Pulse Ox 90 09/15/18 08:07 Constitutional: well developed and well nourished Eyes: PERRL, conjunctivae normal, anicteric sclerae ENMT: Mouth: + oral mucosal abnormality (dry mucous membranes) Neck: trachea midline, no thyromegaly Respiratory: normal respiratory effort, lungs clear to auscultation Cardiovascular: RRR, no murmur, no edema Vessels: no JVD Extremities: no edema Gastrointestinal (Abdomen): normal bowel sounds, soft, nontender, no hepatosplenomegaly Musculoskeletal: Extremities: no cyanosis and no clubbing Skin: + turgor decreased Neurologic: awake Motor/Sensory: no tremor and no asterixis Psychiatric: Orientation: oriented to person Affect: euthymic affect Results & Data Laboratory Results Laboratory Results - last 24 hr 09/14/18 09/14/18 09/14/18 11:12 16:33 20:07 Sodium Potassium Chloride Carbon Dioxide Anion Gap BUN Creatinine Est Cr Clr Drug Dosing Est GFR ( Amer) Est GFR (Non-Af Amer) BUN/Creatinine Ratio Glucose POC Glucose 187 H 161 H 163 H Calcium Phosphorus Albumin 09/15/18 09/15/18 07:24 07:44 Sodium 139 Potassium 5.1 Chloride 107 Carbon Dioxide 24 Anion Gap 7.0 BUN 68 H Creatinine 4.00 H Est Cr Clr Drug Dosing 14.6 Est GFR ( Amer) 15.0 Est GFR (Non-Af Amer) 13.0 BUN/Creatinine Ratio 16.9 Glucose 115 H POC Glucose 124 H Calcium 8.3 L Phosphorus 4.7 Albumin 3.2 L
--- NOTE | 2018-09-15 14:15 | Hospitalist Progress Note ---
Date of Service September 15, 2018 Assessment & Plan (1) Shortness of breath: (2) Anemia: (3) CLL (chronic lymphocytic leukemia): (4) Chest pain: (5) Diabetes: 83 y/o M transfer from [facility] due to CHF exacerbation, caren pleural effusion associated with progressive SOB x 2 weeks. Hx HTN, HLD, COPD, Chronic O2 dependent with 2 L of nasal cannula oxygen, DM II , hypothyroid, CLL, CKD III. Acute on chronic CHF exacerbation and pleural effusion with worsening SOB: still labored breathing, possible mild improving after diuretic his labored breathing was significantly improved after right side thoracentesis with 815ml pleural fluid removed Likely multifactorial secondary to worsening pleural effusions with CHF exac, and reduced lung capacity due to COPD. Possible pulmonary hypertension, Right side thoracentesis was done removed 850ml brown mild pink pleural fluid on September 11, 2018, Pleural fluid sent to the basic routine lab cytology and culture and sensitivity. So far no growth, cytology negative, routine testing shows transient irritation, likely from CHF exacerbation, has been giving 40 mg Lasix yesterday /today, per nephrology input appreciated , renal function continue to decline with creatinine yesterday 3.8 today 4 Possible CHF exacerbation, However echo shows normal LVEF, diastolic dysfunction not able to determine COPD Possible exacerbation with chronic respiratory failure O2 dependent, possible pulmonary hypertension, will discuss with nephrology about diuretics, may planning to have right heart cath for the study of pulmonary hypertension Continue with an 02 protocol and scheduled nebs Acute on chronic CKD, Per choral director to patient's baseline of creatinine was around 2.5, Nephrology had got medical record from patient's primary choral director , see above renal US: September 11, 2017 per report 1. No hydronephrosis. 2. Moderate splenomegaly. 3. Moderate renal cortical thinning. CLL white count is better today, Patient has been refused tx for CLL, uric acid was elevated 8.6, will discuss with qa software tester. Patient declined treatment per qa software tester Left flank discomfort, likely because of splenomegaly which caused tension in the local cavity, will continue pain control, DM II, Hypothyroid, HTN; Continue home medication, Continue Hold HCTZ/Losartan, cont Metoprolol , Hydralazine provided scheduled and PRN, increase scheduled hydralazine 25 mg 3 times daily to 50 mg 3 times daily Discussed with patient about the care plan, she was seen by Dr. Aguilera before, will have outpatient follow-up with ras em, setting up Full code - SCDs Edilmax Subjective Up and walk, complained about left flank area discomfort, not really pain, she is getting better when in bed, report possible better of labored breathing when talking, occasional cough and wheezing, good urine output Review of Systems Constitutional: Positive, weakness, or fatigue Respiratory: See HPI, moderate dyspnea on exertion Cardiac: No chest pain, palpitation or lower extremity swelling Abdomen: see HPI No pain, No nausea, No vomiting, No diarrhea, Musculoskeletal: No joint pain, No muscle pain, No swelling, No calf pain, No problem reported : No dysuria, No urinary frequency, No incontinence, No hematuria Neurologic: No paralysis, No weakness, No numbness/tingling, No vertigo, No balance problems Psychiatric: No depression symptoms, No anhedonism, No anxiety, No insomnia, No substance abuse Heme: No abnormal bleeding/bruising, No clotting problems, No swollen lymph nodes, No night sweats Skin: No rash, No itch, No new/changing skin lesions, No color change, No bleeding Physical Exam 2 Vital Signs (Past 24 Hours): Last Vital Signs Temp 36.8 C 09/15/18 08:07 Pulse 121 H 09/15/18 08:07 Resp 20 09/15/18 08:07 BP 127/57 L 09/15/18 08:07 Pulse Ox 90 09/15/18 08:07 Physical Exam: General Appearance: Frail, chronically ill looking, WD/WN, no apparent distress , mild shortness of breath when talking Eyes: normal inspection, PERRL, EOMI, sclerae normal ENT: normal ENT inspection, hearing grossly normal, pharynx normal Neck: supple, no adenopathy, thyroid normal, no carotid bruits, trachea midline Respiratory/Chest: chest non-tender, Decreased breath sounds, Worse in bilateral lower lungs, occasional wheezing, no crackles, Cardiovascular: regular rate, rhythm, no JVD, no murmur Abdomen: normal bowel sounds, non tender, soft, no organomegaly, Extremities: normal range of motion, non-tender, normal inspection, trace pedal edema, no calf tenderness, normal capillary refill , pelvis stable, joint has no limited range of motion, capillary refill is normal, no cyanosis clubbing Neurologic/Psychiatric: airline manager II-XII nml as tested, no motor/sensory deficits, alert, normal mood/affect, oriented x 3 Skin: normal color, warm/dry, no rash Lymphatic: no adenopathy Results & Data Laboratory Results Laboratory Results - last 24 hr 09/14/18 09/14/18 09/15/18 16:33 20:07 07:24 Sodium 139 Potassium 5.1 Chloride 107 Carbon Dioxide 24 Anion Gap 7.0 BUN 68 H Creatinine 4.00 H Est Cr Clr Drug Dosing 14.6 Est GFR ( Amer) 15.0 Est GFR (Non-Af Amer) 13.0 BUN/Creatinine Ratio 16.9 Glucose 115 H POC Glucose 161 H 163 H Calcium 8.3 L Phosphorus 4.7 Albumin 3.2 L 09/15/18 09/15/18 07:44 11:21 Sodium Potassium Chloride Carbon Dioxide Anion Gap BUN Creatinine Est Cr Clr Drug Dosing Est GFR ( Amer) Est GFR (Non-Af Amer) BUN/Creatinine Ratio Glucose POC Glucose 124 H 225 H Calcium Phosphorus Albumin Microbiology 09/11/18 11:15 Pleural Fluid Gram Stain - Final 09/11/18 11:15 Pleural Fluid Aerobic and Anaerobic Culture - Preliminary No growth to date. 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
[2018-09-15] MEDS: ATORVASTATIN 40 MG TAB PO SCH (21:04)
[2018-09-16] MEDS: LEVOTHYROXINE SODIUM 150 MCG TABLET PO SCH (05:57)
[2018-09-16] MEDS: ALBUT/IPRATROP 3MG/0.5MG NEB 3 ML VIAL NEB PRN ×2 (07:08→20:33)
[2018-09-16] MEDS: HydrALAZINE TAB 50 MG TAB PO SCH ×3 (07:28→22:26)
[2018-09-16] MEDS: ASPIRIN 81 MG ECTAB PO SCH (07:28)
[2018-09-16] MEDS: METOPROLOL SUCC 50MG EXT REL TAB PO SCH (07:28)
[2018-09-16] MEDS: ISOSORBIDE MONO EXTENDED REL 60 MG TABCR PO SCH (07:28)
[2018-09-16] MEDS: AMLODIPINE BESYLATE 5 MG TAB PO SCH (07:28)
[2018-09-16] MEDS: PANTOprazole 40 MG TAB PO SCH (07:28)
[2018-09-16] MEDS: MAGNESIUM OXIDE 400 MG TAB PO SCH (07:28)
[2018-09-16] MEDS: ENOXAPARIN INJ 30 MG/0.3 ML SYR SQ SCH (07:29)
[2018-09-16 07:31] LABS: Hematocrit (blood only) 28.7 % (42-52); Hemoglobin 8.8 g/dL (14.0-18.0); Mean Corpuscular Hgb Conc 30.7 g/dL (32-36); Mean Corpuscular Volume 104.4 fL (80-100); Mean Platelet Volume 9.9 fL (7.4-10.4); Platelet Count 100 K/uL (130-400); RDW Coefficient of Variation 16.8 % (11.5-14.5); RDW Standard Deviation 63.3 fL (36.4-46.3); Red Blood Count 2.75 M/uL (4.7-6.1); White Blood Count 84.26 K/uL (4.8-10.8)
[2018-09-16 07:43] LABS: Albumin Level 3.2 gm/dl (3.4-5.0); BUN Creatinine Ratio 19.6 (10-20); Calcium 8.5 mg/dl (8.5-10.1); Creatinine Clr Calc Pharmacy 16.2 ml/min; Est GFR (African American) 17.1; Est GFR (Non-African American) 14.7; Magnesium 2.5 mg/dl (1.8-2.4); Potassium 5.3 mmol/L (3.5-5.1)
[2018-09-16 07:49] LABS: Phosphorus 3.8 mg/dl (2.5-4.9)
[2018-09-16 08:03] LABS: ALC (manual) 72.72 K/uL (1.2-3.4); Eosinophils # (manual) 1.43 K/uL (0-0.5); Lymphocytes # (manual) 72.72 K/uL (1.2-3.4); Lymphocytes % (manual) 86.3 %; Neutrophils % (manual) 4.3 %; Prolymphocyte # (manual) 6.49 K/uL (0-0); Prolymphocyte % (manual) 7.7 %; Smudge Cells Present
[2018-09-16] MEDS: INSULIN ASPART 100 UNITS/ML 3 ML PEN SC SCH ×4 (08:13→22:27)
[2018-09-16] MEDS: FUROSEMIDE 80 MG TAB PO SCH (09:46)
--- NOTE | 2018-09-16 11:01 | Progress Note ---
DATE: 09/16/2018 Mr. Marcum was seen today. He is not worsening from a pulmonary standpoint; however, he is on the verge of requiring hemodialysis. I am sure the pleural effusions will not be clinically significant once dialysis starts. From my standpoint, we will be glad to see him back at any time, but at this point I am going to sign off as there is nothing for us to add from a thoracic standpoint.
--- NOTE | 2018-09-16 12:12 | Nephrology Progress Note ---
Date of Service September 16, 2018 Assessment & Plan (1) Acute kidney injury: Mr. Marcum is an 83 year old white male admitted to [facility] for evaluation of dyspnea and wheezing. 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 CXR revealed mild pulmonary congestion and small bilateral pleural effusions. Thoracentesis performed and 850 ml of transudative fluid removed from the right lung. Fluid cytology negative. 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 He has KINGA on CKD. Available records show that creatinine had risen from 2.3 to 2.7 over the last 12 months. Creatinine has been relatively stable at 4.0 to 3.6 mg/dL. -- UA +2 protein and trace blood. Microscopy acellular. -- CPK was not elevated. -- Renal US did not reveal evidence of obstruction. -- Repeat RPP tomorrow AM. -- No acute indication for HD today. Due to the trajectory of renal dysfunction and baseline advanced CKD, I discussed starting dialysis with Wyatt and his family. Everyone was supportive of this plan of care. Despite diuretics volume status is difficult to regulate with persistent recurrent pulmonary edema and vascular congestion. -- At this time, plan will be to keep the patient NPO overnight and plan for tunneled HD catheter placement tomorrow AM by Dr. Benjamin, unless there is significant improvement in kidney function in the interim. -- Case management will be consult to assist with arranging outpatient dialysis at [facility] under the care of Dr. Moreira once catheter placement is scheduled. -- Furosemide 80 mg PO provided this AM. -- Renal diet (low K). -- Document I/O's and check metabolic profile daily. (2) Chronic kidney disease: -- Acute on advanced baseline kidney function. -- Dr. Moreira had discussed possible need to start HD with Wyatt in the past. Wyatt had deferred scheduling AVF placement. (3) CLL (chronic lymphocytic leukemia): -- Hematology consultation appreciated. Patient waiting to talk to Dr. Taylor when available. -- No emergent plan for treatment. -- Hemoglobin stable. (4) Hyperkalemia: -- Potassium monitored closely. HyperK on admission treated with kayexalate. -- Low K diet. (5) CHF (congestive heart failure): -- CXR w/ mild vascular congestion and small bilateral effusions. -- TTE demonstrated increased RVSP with mild concentric LVH. No significant valvular heart disease. LVEF preserved. -- I suspect that a component of the patient's condition is related to pulmonary hypertension (likely related to underlying pulmonary disease and complicated by CLL and kidney dyfunction) -- Additional 80 mg furosemide provided this morning. -- Will continue to monitor. Subjective No acute events overnight. Wyatt notes that his breathing is not quite at baseline though it has improved. He has stable orthopnea. Otherwise, he feels well. Wyatt denies any fevers or chills. He denies chest pain or palpitations. He denies cough. Review of Systems All systems reviewed & are unremarkable except as noted in HPI & below Physical Exam 2 Vital Signs (Past 24 Hours): Last Vital Signs Temp 36.5 C 09/16/18 11:28 Pulse 60 09/16/18 11:28 Resp 18 09/16/18 11:28 BP 154/68 H 09/16/18 11:28 Pulse Ox 97 09/16/18 11:28 Constitutional: well developed and well nourished Eyes: PERRL, conjunctivae normal, anicteric sclerae ENMT: Mouth: + oral mucosal abnormality (dry mucous membranes) Neck: trachea midline, no thyromegaly Respiratory: normal respiratory effort, lungs clear to auscultation Cardiovascular: RRR, no murmur, no edema Vessels: no JVD Extremities: no edema Gastrointestinal (Abdomen): normal bowel sounds, soft, nontender, no hepatosplenomegaly Musculoskeletal: Extremities: no cyanosis and no clubbing Skin: + turgor decreased Neurologic: awake Motor/Sensory: no tremor and no asterixis Psychiatric: Orientation: oriented to person Affect: euthymic affect Results & Data Laboratory Results Laboratory Results - last 24 hr 09/11/18 09/15/18 09/15/18 11:15 16:23 20:23 WBC RBC Hgb Hct MCV MCH MCHC RDW Std Deviation RDW Coeff of Maren Plt Count MPV Neutrophils % (Manual) Lymphocytes % (Manual) Prolymphocyte % Eosinophils % (Manual) Neutrophils # (Manual) Total Absolute Neuts Lymphocytes # (Manual) Prolymphocyte # Total Abs Lymphocytes Eosinophils # (Manual) Smudge Cells Sodium Potassium Chloride Carbon Dioxide Anion Gap BUN Creatinine Est Cr Clr Drug Dosing Est GFR ( Amer) Est GFR (Non-Af Amer) BUN/Creatinine Ratio Glucose POC Glucose 182 H 289 H Calcium Phosphorus Magnesium Albumin Pleural Lipase 3.0 Pleural Cholesterol 32 09/16/18 09/16/18 09/16/18 06:51 06:51 07:41 WBC 84.26 H* RBC 2.75 L Hgb 8.8 L Hct 28.7 L MCV 104.4 H MCH 32.0 MCHC 30.7 L RDW Std Deviation 63.3 H RDW Coeff of Maren 16.8 H Plt Count 100 L MPV 9.9 Neutrophils % (Manual) 4.3 Lymphocytes % (Manual) 86.3 Prolymphocyte % 7.7 Eosinophils % (Manual) 1.7 Neutrophils # (Manual) 3.62 Total Absolute Neuts 3.62 Lymphocytes # (Manual) 72.72 H Prolymphocyte # 6.49 H Total Abs Lymphocytes 72.72 H Eosinophils # (Manual) 1.43 H Smudge Cells Present Sodium 139 Potassium 5.3 H Chloride 109 H Carbon Dioxide 26 Anion Gap 4.0 BUN 71 H Creatinine 3.60 H D Est Cr Clr Drug Dosing 16.2 Est GFR ( Amer) 17.1 Est GFR (Non-Af Amer) 14.7 BUN/Creatinine Ratio 19.6 Glucose 135 H POC Glucose 137 H Calcium 8.5 Phosphorus 3.8 Magnesium 2.5 H Albumin 3.2 L Pleural Lipase Pleural Cholesterol 09/16/18 12:00 WBC RBC Hgb Hct MCV MCH MCHC RDW Std Deviation RDW Coeff of Maren Plt Count MPV Neutrophils % (Manual) Lymphocytes % (Manual) Prolymphocyte % Eosinophils % (Manual) Neutrophils # (Manual) Total Absolute Neuts Lymphocytes # (Manual) Prolymphocyte # Total Abs Lymphocytes Eosinophils # (Manual) Smudge Cells Sodium Potassium Chloride Carbon Dioxide Anion Gap BUN Creatinine Est Cr Clr Drug Dosing Est GFR ( Amer) Est GFR (Non-Af Amer) BUN/Creatinine Ratio Glucose POC Glucose 158 H Calcium Phosphorus Magnesium Albumin Pleural Lipase Pleural Cholesterol
--- NOTE | 2018-09-16 15:26 | Hospitalist Progress Note ---
Date of Service September 16, 2018 Assessment & Plan (1) Shortness of breath: (2) Anemia: (3) CLL (chronic lymphocytic leukemia): (4) Chest pain: (5) Diabetes: 83 y/o M transfer from [facility] due to CHF exacerbation, caren pleural effusion associated with progressive SOB x 2 weeks. Patient has right- sided thorax centesis done, chest surgeon and nephrology on the case, is been trying to direct him with the risk of worsening renal function, and preparing for possible start dialysis, patient agreed for the plan Hx HTN, HLD, COPD, Chronic O2 dependent with 2 L of nasal cannula oxygen, DM II , hypothyroid, CLL, CKD III. Acute on chronic CHF exacerbation and pleural effusion with worsening SOB: Improving with diuretic not able to calculate negative output because patient sometimes Pee in the toilet His labored breathing was significantly improved after right side thoracentesis with 815ml pleural fluid removed Likely multifactorial secondary to worsening pleural effusions with CHF exac, and reduced lung capacity due to COPD. Possible pulmonary hypertension, Right side thoracentesis was done removed 850ml brown mild pink pleural fluid on September 11, 2018, Pleural fluid sent to the basic routine lab cytology and culture and sensitivity. So far no growth, cytology negative, routine testing shows transient irritation, likely from CHF exacerbation, CHF exacerbation, has been giving 40 mg Lasix yesterday, renal function is improving from 4 to 3.6, nephrology with higher dose of Lasix to 80 mg p.o. daily, per network operations specialist, No acute indication for HD today. Due to the trajectory of renal dysfunction and baseline advanced CKD, may need to start dialysis, network operations specialist the plan will be to keep the patient NPO overnight for tunneled HD catheter placement tomorrow AM by Dr. Benjamin, Possible acute on chronic diastolic dysfunction CHF exacerbation, However echo shows normal LVEF, diastolic dysfunction not able to determine COPD Possible exacerbation with chronic respiratory failure O2 dependent, possible pulmonary hypertension, Continue with an 02 protocol and scheduled nebs Leukemia with moderate splenomegaly. CLL white count is better today, Patient has been refused tx for CLL, uric acid was elevated 8.6, will discuss with store merchandiser. Patient declined treatment per store merchandiser Left flank discomfort, likely because of splenomegaly which caused tension in the local cavity, will continue pain control, DM II, Hypothyroid, HTN; Continue home medication, Continue Hold HCTZ/Losartan, cont Metoprolol , Hydralazine provided scheduled and PRN, increase scheduled hydralazine 25 mg 3 times daily to 50 mg 3 times daily Discussed with patient about the care plan, she was seen by Dr. Aguilera before, will have outpatient follow-up with ras em, setting up Full code - S[facility] [place] The discharge plan is to discuss with network operations specialist and will go from there Subjective Up and walk, continue complained about left flank area discomfort, which is not new not really pain, is getting better when in bed, report possible better of labored breathing when talking, occasional cough and wheezing, good urine output Review of Systems Constitutional: Positive, weakness, or fatigue Respiratory: See HPI, mild dyspnea on exertion Cardiac: No chest pain, palpitation or lower extremity swelling Abdomen: see HPI No pain, No nausea, No vomiting, No diarrhea, Musculoskeletal: No joint pain, No muscle pain, No swelling, No calf pain, No problem reported : No dysuria, No urinary frequency, No incontinence, No hematuria Neurologic: No paralysis, No weakness, No numbness/tingling, No vertigo, No balance problems Psychiatric: No depression symptoms, No anhedonism, No anxiety, No insomnia, No substance abuse Heme: No abnormal bleeding/bruising, No clotting problems, No swollen lymph nodes, No night sweats Skin: No rash, No itch, No new/changing skin lesions, No color change, No bleeding Physical Exam 2 Vital Signs (Past 24 Hours): Last Vital Signs Temp 36.5 C 09/16/18 14:51 Pulse 56 L 09/16/18 14:51 Resp 20 09/16/18 14:51 BP 137/53 L 09/16/18 14:51 Pulse Ox 97 09/16/18 14:51 Physical Exam: General Appearance: Frail, mild pale, chronically ill looking , WD/WN, no apparent distress, mild shortness of breath when talking Eyes: normal inspection, PERRL, EOMI, sclerae normal ENT: normal ENT inspection, hearing grossly normal, pharynx normal Neck: supple, no adenopathy, thyroid normal, no carotid bruits, trachea midline Respiratory/Chest: chest non-tender, Decreased breath sounds, occasional wheezing, no crackles, Cardiovascular: regular rate, rhythm, no JVD, no murmur Abdomen: normal bowel sounds, non tender, soft, mild distended, possible splenomegaly Extremities: normal range of motion, non-tender, normal inspection, trace pedal edema, no calf tenderness, normal capillary refill , pelvis stable, joint has no limited range of motion, capillary refill is normal, no cyanosis clubbing Neurologic/Psychiatric: 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 II-XII nml as tested, no motor/sensory deficits, alert, normal mood/affect, oriented x 3 Skin: normal color, warm/dry, no rash Lymphatic: no adenopathy Results & Data Laboratory Results Laboratory Results - last 24 hr 09/11/18 09/15/18 09/15/18 11:15 16:23 20:23 WBC RBC Hgb Hct MCV MCH MCHC RDW Std Deviation RDW Coeff of Maren Plt Count MPV Neutrophils % (Manual) Lymphocytes % (Manual) Prolymphocyte % Eosinophils % (Manual) Neutrophils # (Manual) Total Absolute Neuts Lymphocytes # (Manual) Prolymphocyte # Total Abs Lymphocytes Eosinophils # (Manual) Smudge Cells Sodium Potassium Chloride Carbon Dioxide Anion Gap BUN Creatinine Est Cr Clr Drug Dosing Est GFR ( Amer) Est GFR (Non-Af Amer) BUN/Creatinine Ratio Glucose POC Glucose 182 H 289 H Calcium Phosphorus Magnesium Albumin Pleural Lipase 3.0 Pleural Cholesterol 32 09/16/18 09/16/18 09/16/18 06:51 06:51 07:41 WBC 84.26 H* RBC 2.75 L Hgb 8.8 L Hct 28.7 L MCV 104.4 H MCH 32.0 MCHC 30.7 L RDW Std Deviation 63.3 H RDW Coeff of Maren 16.8 H Plt Count 100 L MPV 9.9 Neutrophils % (Manual) 4.3 Lymphocytes % (Manual) 86.3 Prolymphocyte % 7.7 Eosinophils % (Manual) 1.7 Neutrophils # (Manual) 3.62 Total Absolute Neuts 3.62 Lymphocytes # (Manual) 72.72 H Prolymphocyte # 6.49 H Total Abs Lymphocytes 72.72 H Eosinophils # (Manual) 1.43 H Smudge Cells Present Sodium 139 Potassium 5.3 H Chloride 109 H Carbon Dioxide 26 Anion Gap 4.0 BUN 71 H Creatinine 3.60 H D Est Cr Clr Drug Dosing 16.2 Est GFR ( Amer) 17.1 Est GFR (Non-Af Amer) 14.7 BUN/Creatinine Ratio 19.6 Glucose 135 H POC Glucose 137 H Calcium 8.5 Phosphorus 3.8 Magnesium 2.5 H Albumin 3.2 L Pleural Lipase Pleural Cholesterol 09/16/18 12:00 WBC RBC Hgb Hct MCV MCH MCHC RDW Std Deviation RDW Coeff of Maren Plt Count MPV Neutrophils % (Manual) Lymphocytes % (Manual) Prolymphocyte % Eosinophils % (Manual) Neutrophils # (Manual) Total Absolute Neuts Lymphocytes # (Manual) Prolymphocyte # Total Abs Lymphocytes Eosinophils # (Manual) Smudge Cells Sodium Potassium Chloride Carbon Dioxide Anion Gap BUN Creatinine Est Cr Clr Drug Dosing Est GFR ( Amer) Est GFR (Non-Af Amer) BUN/Creatinine Ratio Glucose POC Glucose 158 H Calcium Phosphorus Magnesium Albumin Pleural Lipase Pleural Cholesterol Microbiology 09/11/18 11:15 Pleural Fluid Gram Stain - Final 09/11/18 11:15 Pleural Fluid Aerobic and Anaerobic Culture - Preliminary No growth to date. 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
[2018-09-16] MEDS: ALUMINUM/MAGNESIUM SUSP 30 ML UDC PO PRN (18:45)
[2018-09-16] MEDS: ATORVASTATIN 40 MG TAB PO SCH (22:26)
[2018-09-16] MEDS: ZOLPIDEM TARTRATE 5 MG TAB PO PRN (22:28)
[2018-09-17] MEDS: LEVOTHYROXINE SODIUM 150 MCG TABLET PO SCH (05:32)
[2018-09-17 07:27] LABS: Hematocrit (blood only) 28.4 % (42-52); Hemoglobin 8.6 g/dL (14.0-18.0); Mean Corpuscular Hgb Conc 30.3 g/dL (32-36); Mean Platelet Volume 10.2 fL (7.4-10.4); Platelet Count 98 K/uL (130-400); RDW Coefficient of Variation 16.8 % (11.5-14.5); RDW Standard Deviation 62.7 fL (36.4-46.3); Red Blood Count 2.73 M/uL (4.7-6.1); White Blood Count 79.89 K/uL (4.8-10.8)
[2018-09-17] MEDS: ALBUT/IPRATROP 3MG/0.5MG NEB 3 ML VIAL NEB PRN (07:27)
[2018-09-17 07:50] LABS: Potassium 4.7 mmol/L (3.5-5.1)
[2018-09-17 07:51] LABS: Albumin Level 3.2 gm/dl (3.4-5.0); BUN Creatinine Ratio 19.2 (10-20); Calcium 8.4 mg/dl (8.5-10.1); Creatinine Clr Calc Pharmacy 16.1 ml/min; Est GFR (Non-African American) 14.6; Magnesium 2.4 mg/dl (1.8-2.4); Phosphorus 4.3 mg/dl (2.5-4.9)
[2018-09-17] MEDS: ALUMINUM/MAGNESIUM SUSP 30 ML UDC PO PRN (07:56)
[2018-09-17] MEDS: INSULIN ASPART 100 UNITS/ML 3 ML PEN SC SCH ×4 (07:58→20:34)
[2018-09-17 08:19] LABS: Smudge Cells Present
[2018-09-17 08:23] LABS: ALC (manual) 64.31 K/uL (1.2-3.4); Eosinophils # (manual) 0.64 K/uL (0-0.5); Lymphocytes # (manual) 56.16 K/uL (1.2-3.4); Lymphocytes % (manual) 70.3 %; Monocytes # (manual) 4.07 K/uL (0.11-0.59); Monocytes % (manual) 5.1 %; Neutrophils % (manual) 6.8 %; Prolymphocyte # (manual) 5.43 K/uL (0-0); Prolymphocyte % (manual) 6.8 %; RBC Morphology Unremarkable; Reactive Lymphocytes # (manual) 8.15 K/uL
--- NOTE | 2018-09-17 09:14 | XRay Report ---
XR chest 1V portable CLINICAL HISTORY: CHF COMPARISON STUDY: 09/14/2018 FINDINGS: The heart is mildly enlarged. There is improving mild interstitial thickening. There are pe rsistent left basilar airspace opacities/edema.[ There are trace bilateral pleural effusions. IMPRESSION: 1. Cardiomegaly and improving mild pulmonary vascular congestion 2. Persistent left basilar airspace opacity: focal edema versus atelectasis versus infectious/inflamm atory 3. Persistent trace bilateral pleural effusions Electronically signed by: Duncan Rainey M.D. 09/17/2018 9:13 AM
[2018-09-17] MEDS ORDERED: SODIUM CHLORIDE 0.9% 1000ML 1,000 ML IV PRN (09:40)
--- NOTE | 2018-09-17 09:40 | Consultation ---
Date of Consultation September 17, 2018 Assessment & Plan (1) Acute kidney injury: Pt for permcath insertion today. Pt agreeable. Pt discussed with Dr Benjamin as well. Patient was seen, examined, and chart reviewed. Agree with exam and treatment plan of the Vascular PA. I have discussed the risks options and benefits of the procedure with the patient. The patient understands the risks options and benefits and agrees to the procedure. Present on Admission?: Yes History of Present Illness Reason for Consultation: ESRD, need permcath Attending Physician: Francisco Cervantes, DO History of Present Illness 83 yo m with multiple medical problems, including CLL and ckd, admitted with worsening renal fxn, seen in consultation today for permcath insertion to initiate HD. Pt admits pain in neck lymph nodes. Denies SANCHEZ, fever, chills, chest pain, SOB, cough, rest pain, claudication, other complaints. Allergies Allergy/AdvReac Type Severity Reaction Status Date / Time No Known Allergies Allergy Unverified 02/26/15 15:21 Home Medications Home Medications Medication Instructions Recorded Confirmed Type AMLODIPINE BESYLATE (NORVASC) 10 mg PO DAILY #0 tab 02/26/15 09/10/18 History ASPIRIN (ASPIRIN EC) 81 mg PO DAILY #0 02/26/15 09/10/18 History Calcitriol 0.25 mcg PO Q OTHER DAY #0 02/26/15 09/10/18 History GLIPIZIDE (GLUCOTROL) 5 mg PO BID #0 tab 02/26/15 09/10/18 History HAWTHORN (HAWTHORN PEREZ) 150 mg PO DAILY PRN #0 02/26/15 09/10/18 History HYDROCHLOROTHIAZIDE (HCTZ) 25 mg PO DAILY #0 tab 02/26/15 History IPRATROPIUM-ALBUTEROL (COMBIVENT 1 puff INHALATION Q6H #0 inh 02/26/15 History RESPIMAT) LEVOTHYROXINE SODIUM 150 mcg PO DAILY #0 02/26/15 09/10/18 History LISINOPRIL (ZESTRIL) 2.5 mg PO DAILY #0 02/26/15 History LOSARTAN POTASSIUM (COZAAR) 100 mg PO DAILY #0 tab 02/26/15 History MULTIVITAMINS/MINERALS (MVI WITH 1 tab PO DAILY #0 tab 02/26/15 09/10/18 History MINERALS) Metoprolol Succinate (Metoprolol 100 mg PO DAILY #0 02/26/15 09/10/18 History Succinate ER) Pro Stavan 1 tab PO DAILY 09/10/18 09/10/18 History atorvastatin 40 mg PO HS 09/10/18 09/10/18 History cholecalciferol (vitamin D3) 2,000 unit PO DAILY 09/10/18 09/10/18 History [Vitamin D3] cinnamon bark-chromium picolin 1 tab PO DAILY 09/10/18 09/10/18 History clonidine 1 patch TRANSDERMAL WK 09/10/18 09/10/18 History grape seed extract 1 tab PO DAILY 09/10/18 09/10/18 History hydralazine 25 mg PO TID 09/10/18 09/10/18 History isosorbide mononitrate 120 mg PO DAILY 09/10/18 09/10/18 History lorazepam 1 tab PO PRN 09/10/18 History lysine [L-Lysine] 500 mg PO DAILY 09/10/18 09/10/18 History magnesium 250 mg PO DAILY 09/10/18 09/10/18 History omeprazole 20 mg PO DAILY PRN 09/10/18 09/10/18 History selenium 50 mcg PO DAILY 09/10/18 09/10/18 History turmeric root extract 500 mg PO DAILY 09/10/18 09/10/18 History umeclidinium [Incruse Ellipta] 1 inh INHALATION DAILY 09/10/18 09/10/18 History Patient History Medical History CKD (chronic kidney disease) CLL (chronic lymphocytic leukemia) Family History Mother Heart attack Sister Diabetes 1.5, managed as type 1 Social History Current Living Situation: Spouse Other Information That Helps Us Care for You: No Feels Safe at Home: Yes Safety Concerns: Feels Safe At This Time Smoking Status: Never smoker Do You Dip or Chew Tobacco: No Hx Alcohol Use: No Hx Substance Use: No Beliefs That Will Affect Care: None Communication Ability: Effective Review of Systems Constitutional: + fatigue and + malaise; no fever, no chills, no sweats and no weight loss Eyes: no blind spots and no problem reported Ear, Nose, Mouth, Throat: no hearing loss and no sore throat Respiratory: + dyspnea on exertion; no cough, no dyspnea and no hemoptysis Cardiovascular: no chest pain, no palpitations, no syncope, no claudication and no problem reported Gastrointestinal: no abdominal pain, no early satiety, no nausea, no vomiting, no cramping, no change in bowel habits, no diarrhea/loose stools and no blood in stools Musculoskeletal: no back pain, no joint pain, no swelling and no muscle weakness Integumentary: no rash, no non-healing lesions, no skin ulcer, no wounds and no erythema Neurologic: no localized weakness, no generalized weakness, no paralysis, no loss of sensation, no tingling, no numbness, no paresthesia, no seizure-like activity, no syncope, no headache(s) and no confusion Psychiatric: as per Subjective / HPI Hematologic / Lymphatic: no easy bleeding, no easy bruising, no coagulopathy, no night sweats and no unexplained weight loss Physical Exam 2 Vital Signs (Past 24 Hours): Last Vital Signs Temp 36.7 C 09/17/18 07:48 Pulse 56 L 09/17/18 07:48 Resp 16 09/17/18 07:48 BP 142/67 H 09/17/18 07:48 Pulse Ox 95 09/17/18 07:48 Constitutional: WD/WN, vitals as above well developed, well nourished, + ill appearing, + obese, + frail appearing, well groomed, cooperative, comfortable and + lethargic; not in distress Eyes: PERRL, conjunctivae normal, anicteric sclerae EOM intact bilaterally ENMT: external ear and nose normal, oropharynx normal Ears: no hearing impairment Nose: no nasal discharge Mouth: no malodorous breath Throat : no posterior oropharynx abnormality Neck: trachea midline, no thyromegaly + neck tender; no tracheal deviation and no neck crepitus Respiratory: able to speak in complete sentences; does not use accessory muscles, no cough, not tachypneic and no audible wheezes Auscultation: + diminished lung sounds and + crackles; no rhonchi and no wheezes Cardiovascular: RRR, no murmur, no edema Heart Sounds: no gallop and no murmur Vessels: + carotid bruit, normal peripheral pulses, femoral pulses present, posterior tibial pulses present, dorsalis pedis pulses present, brachial pulses present and radial pulses present; no femoral bruit Extremities: normal capillary refill, + pedal edema and + edema Chest (Breasts): Chest: normal inspection of chest Gastrointestinal (Abdomen): normal bowel sounds, soft, nontender, no hepatosplenomegaly Inspection/Auscultation: abdomen normal to inspection and normal bowel sounds Percussion/Palpation: abdomen soft; abdomen nontender, no guarding, abdomen not rigid and no abdominal mass Musculoskeletal: no cyanosis or clubbing, extremities motor strength 5/5 Head/Neck/Chest: normocephalic, head atraumatic and neck supple; no chest tenderness Extremities: extremities normal to inspection; full ROM of extremities, + abnormal strength and no clubbing Skin: no rashes, warm and dry normal turgor; turgor not decreased, no lesions, no wound and no erythema Trauma: no hematoma and no puncture Neurologic: moves all extremities and awake; no focal motor deficits Speech / Cognition: no expressive aphasia and no receptive aphasia Motor/ Sensory: no tremor and no sensory deficit Cranial Nerves: EOM intact bilaterally and normal facial strength Psychiatric: Orientation: alert, oriented x 3, oriented to person, oriented to place, oriented to time and cooperative Apperance: appropriately dressed, appropriately groomed and appeared stated age Affect: euthymic affect Thought Process: goal directed thought process, linear/logical thought process and clear/coherent thought process Cognition: recent memory grossly intact, remote memory grossly intact, attention grossly intact and language grossly intact Estimated Intelligence: average estimated intelligence Lymphatic: no lymphedema
--- NOTE | 2018-09-17 09:53 | Nephrology Progress Note ---
Date of Service September 17, 2018 Assessment & Plan (1) Acute kidney injury: Mr. Marcum is an 83 year old white male admitted to [facility] for evaluation of dyspnea and wheezing. 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 CXR revealed mild pulmonary congestion and small bilateral pleural effusions. Thoracentesis performed and 850 ml of transudative fluid removed from the right lung. Fluid cytology negative. Mr. Marcum has CLL and presented w/ WBC # 90K and progressive anemia. He has KINGA on CKD. Available records show that creatinine had risen from 2.3 to 2.7 over the last 12 months. Creatinine has been relatively stable at 4.0 to 3.6 mg/dL w/ EGFR 14 cc/min -- UA +2 protein and trace blood. Microscopy acellular. -- CPK was not elevated. -- Renal US w/ ~ 9.2 cm kidneys. No evidence of obstruction. -- Patient has progressive azotemia and marginal renal function. His renal impairment is likely on the basis of microvascular disease, HTN and DM. No significant improvement during hospitalization. CXR this am shows persistent pulmonary edema. Discussed the indications/benefits/risks/alternatives to IJ THC insertion and initiation of HD at length w/ patient and his family this am. Patient is in agreement to proceed w/ HD. -- IJ THC insertion by Dr. Benjamin this am -- 1st run HD today. Orders entered into EMR and HD RN notified. No heparin -- Will consult discharge planning to set up outpatient HD at [facility] w / Dr. Moreira (2) Chronic kidney disease: -- Awaiting medical records from Dr. Moreira. Will request again today (3) CLL (chronic lymphocytic leukemia): -- Hematology consultation appreciated. Patient waiting to talk to Dr. Taylor when available. -- No emergent plan for treatment. -- Question whether LETY therapy can be provided (4) CHF (congestive heart failure): -- CXR today w/ mild vascular congestion and small bilateral effusions. -- TTE demonstrated increased RVSP with mild concentric LVH. No significant valvular heart disease. LVEF preserved. -- I suspect that a component of the patient's condition is related to pulmonary hypertension (likely related to underlying pulmonary disease and complicated by CLL and kidney dyfunction) Subjective Mr. Marcum was seen & examined in his hospital room this morning. His family was present at the time of my evaluation. Mr. Marcum diuresed nearly 2 L overnight. Despite diuresis he remains dyspneic w/ activity. He denies angina , fever or uremic symptoms. He is agreeable to IJ THC insertion and initiation of HD if needed. Respiratory: + dyspnea on exertion and + wheezing Physical Exam 2 Vital Signs (Past 24 Hours): Last Vital Signs Temp 36.7 C 09/17/18 07:48 Pulse 56 L 09/17/18 07:48 Resp 16 09/17/18 07:48 BP 142/67 H 09/17/18 07:48 Pulse Ox 95 09/17/18 07:48 Constitutional: well developed and well nourished Eyes: PERRL, conjunctivae normal, anicteric sclerae ENMT: Mouth: + oral mucosal abnormality (dry mucous membranes) Neck: trachea midline, no thyromegaly Respiratory: normal respiratory effort, lungs clear to auscultation Cardiovascular: RRR, no murmur, no edema Vessels: no JVD Extremities: no edema Gastrointestinal (Abdomen): normal bowel sounds, soft, nontender, no hepatosplenomegaly Skin: + turgor decreased Results & Data Laboratory Results Laboratory Tests 09/12/18 09/17/18 09/17/18 16:18 06:54 06:54 WBC 79.89 H* Hgb 8.6 L Hct 28.4 L Plt Count 98 L INR 1.0 Sodium 140 Potassium 4.7 Chloride 108 H Carbon Dioxide 26 BUN 70 H Creatinine 3.62 H
[2018-09-17] MEDS ORDERED: LIDOCAINE HCL 1% 20 ML VIAL ONE (10:04)
[2018-09-17] MEDS ORDERED: MIDAZOLAM HCL 1 MG/ML 2ML VIAL ONE (10:07)
[2018-09-17] MEDS ORDERED: fentaNYL citrate 100 MCG/2 ML VIAL ONE (10:07)
[2018-09-17] MEDS ORDERED: HEPARIN SOD (PORCINE) 5,000 UNITS/ML VIAL ONE (10:07)
[2018-09-17] MEDS ORDERED: CEFAZOLIN 2,000 MG/15 ML IV PUSH IV ONE (10:22)
[2018-09-17] MEDS ORDERED: CEFAZOLIN 2000MG 2,000 MG/15 ML SYR IV ONE (10:25)
--- NOTE | 2018-09-17 10:27 | Pre Anesthesia Assessment ---
Date of Service September 17, 2018 Pre Sedation Assessment Vital Signs Temp Pulse Pulse Resp BP BP Pulse Ox 09/17/18 07:48 36.7 C 56 L 16 142/67 H 95 09/17/18 07:27 51 L 18 95 09/17/18 04:00 36.8 C 67 21 144/59 H 96 09/17/18 00:14 65 09/16/18 23:00 37.0 C 64 20 137/61 94 09/16/18 20:37 64 18 93 09/16/18 20:05 36.7 C 56 L 20 133/59 L 98 09/16/18 16:00 56 L 09/16/18 14:51 36.5 C 56 L 20 137/53 L 97 09/16/18 11:28 36.5 C 60 18 154/68 H 97 Cardiovascular + regular rate and + regular rhythm Respiratory + respiratory effort normal and + respiratory distress Pre-Sedation Airway Assessment Smoking Status: Never smoker Mallampati Class: II ASA: ASA4 NPO Status Date of Last Intake of Fluids: 09/16/18 Time of Last Intake of Fluids: 22:00 Date of Last Intake of Solid Food: 09/16/18 Time of Last Intake of Solid Foods: 17:30 Procedure Planning Contraindications for Sedation: none Current Medications Reviewed: Yes Notes The planned sedation has been discussed with the patient. Informed Consent was obtained. I have identified the patient, determined the appropriateness of sedation and have assessed the patient immediately prior to the procedure. All medicine(s) and interventions are by my order.
[2018-09-17 10:34] LABS: Hepatitis B Surface Antibody Non-Immune
[2018-09-17 10:44] LABS: Hepatitis B Surface Antigen Neg (Neg)
--- NOTE | 2018-09-17 11:20 | Post Operative Brief Note ---
Immediate Post Op Note v1 Date of Surgery September 17, 2018 Pre & Post Diagnosis Operation Date: 09/17/18 09:45 Pre-Op Diagnosis: acute kidney injury Post-Op Diagnosis: acute kidney injury Procedure Operation Date: 09/17/18 09:45 Actual Procedures p Insertion Of Perm Catheter, Right Internal Jugular Approach, Ultrasound Guidance For Access Of Right Internal Jugular Vein, Fluoroscopy For Positioning , Moderate Concious Sedation 1102 to 1127(Right) - Jalen Benjamin MD Surgeon Jalen Benjamin MD Fitness Manager Chiquis Wagner MD Estimated Blood Loss 3 Findings Consistent with Post-Op Diagnosis Anesthesia Type RN Sedation Complications none Disposition Accompanied Patient To Recovery: No Disposition: Recovery Room
--- NOTE | 2018-09-17 11:34 | Operative Report ---
Post Operative Report Pre & Post Diagnosis Operation Date: 09/17/18 09:45 Pre-Op Diagnosis: acute kidney injury Post-Op Diagnosis: acute kidney injury Procedure Operation Date: 09/17/18 09:45 Actual Procedures p Insertion Of Perm Catheter, Right Internal Jugular Approach, Ultrasound Guidance For Access Of Right Internal Jugular Vein, Fluoroscopy For Positioning , Moderate Concious Sedation 1102 to 1127(Right) - Jalen Benjamin MD Surgeon Jalen Benjamin MD Check Weigher Chiquis Wagner MD Estimated Blood Loss 3 Findings Consistent with Post-Op Diagnosis Specimens None Anesthesia Type RN Sedation Complications none Disposition Disposition: Recovery Room Indications 83 year old male with CLL and progression renal failure who will likely require hemodialysis within next few days, presenting for placement of PermaCath. Description of Procedure Patient was brought to the operating room and identified as Wyatt Marcum.He was positioned supine on the operating table. His neck was extended to the left and his hardwick clipped. His right neck was prepped with ChloraPrep in the usual fashion and subsequently draped.Approximately 4-5 mL's of local anesthetic was infiltrated into the subcutaneous tissues. Under ultrasound guidance, the right internal jugular vein was noted to be patent and compressible without pulsatility.A needle was used to access the right internal jugular vein with good return of blood.A wire was then inserted through the needle and confirmed with fluoroscopy to be venous system. A 5 mm skin incision was made over the wire, as well as over the chest wall in the right upper chest.A tunneling device was used to tunnel the catheter from the chest wall incision up through the neck incision. The venous tract was progressively dilated over the wire and its position was confirmed with fluoroscopy.The peel-away sheath was then cracked and gradually withdrawn as the catheter was advanced through it.After the catheter was completely advanced, fluoroscopy confirmed that there was no kinking and that it took a nice curve from the chest wall into the vein in the neck.There were no apparent complications.The permacath was sutured to the skin with nylon suture and a biofilm was applied to the entry site. The neck incision was closed with 4-0 Vicryl. Dermabond was applied. Dr. Benjamin was present and scrubbed for the entire procedure. I attest to the content of the Intraoperative Record and any orders documented therein. Any exceptions are noted below.
[2018-09-17] MEDS: ASPIRIN 81 MG ECTAB PO SCH (12:09)
[2018-09-17] MEDS: HydrALAZINE TAB 50 MG TAB PO SCH ×3 (12:10→20:35)
[2018-09-17] MEDS: FUROSEMIDE 80 MG TAB PO SCH (12:11)
[2018-09-17] MEDS: ISOSORBIDE MONO EXTENDED REL 60 MG TABCR PO SCH (12:11)
[2018-09-17] MEDS: CALCITRIOL 0.25 MCG CAPSULE PO SCH (12:12)
[2018-09-17] MEDS: ENOXAPARIN INJ 30 MG/0.3 ML SYR SQ SCH (12:12)
[2018-09-17] MEDS: METOPROLOL SUCC 50MG EXT REL TAB PO SCH (12:12)
[2018-09-17] MEDS: PANTOprazole 40 MG TAB PO SCH (12:12)
[2018-09-17] MEDS: MAGNESIUM OXIDE 400 MG TAB PO SCH (12:12)
[2018-09-17] MEDS: AMLODIPINE BESYLATE 5 MG TAB PO SCH (12:12)
--- NOTE | 2018-09-17 16:13 | Hospitalist Progress Note ---
Date of Service September 17, 2018 Assessment & Plan (1) Acute congestive heart failure: - This is possible diastolic but this was indeterminant on echo but EF is normal; noted RV pressure of 50-60 mmHg - S/P R thoracentesis on on 09/11 with removal of 850 cc that appeared to be transudative - no growth noted on cx but analysis does show leukocytes which could correlate with his known CLL - Continues to have some underlying dyspnea but marked improvement - likely multifactorial given pulm HTN, CHF, possible COPD? - Continue diuresis as able - but given renal function he has now entered the phase of dialysis to assist with fluid management Present on Admission?: Yes (2) Acute kidney injury: - Patient has had a steady decline in renal function over the past year and given fluid issues he is now at dialysis stages - it appears his renal function supports an acute kidney injury superimposed on CKD - Tunneled HD catheter placed on 09/17 with initiation of dialysis - Nephrology following - appreciate input and will need F/U with Dr. Moreira for ongoing sessions Present on Admission?: Yes (3) Essential hypertension: - Amlodipine 10 mg daily; Hydralazine 50 mg TID; Toprol XL 100 mg daily; HCTZ on hold at this time Present on Admission?: Yes (4) CLL (chronic lymphocytic leukemia): - Follows with Dr. 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 States his breathing is not baseline yet but much improved since his thoracentesis. Planning on HD catheter today and dialysis later this afternoon. He is sinus rhythm on monitor. Verbalizes no complaints other than wanting something to eat. Constitutional: + fatigue; no fever and no chills Eyes: no worsening vision Ear, Nose, Mouth, Throat: no sore throat, no hoarseness and no dysphagia Respiratory: no dyspnea Cardiovascular: no chest pain and no edema Gastrointestinal: + bloating; no abdominal pain, no nausea, no vomiting, no constipation and no diarrhea/loose stools Genitourinary (Male): no dysuria Integumentary: no rash Physical Exam 2 Vital Signs (Past 24 Hours): Last Vital Signs Temp 36.3 C L 09/17/18 12:24 Pulse 66 09/17/18 13:00 Resp 18 09/17/18 13:00 BP 138/62 09/17/18 13:00 Pulse Ox 93 09/17/18 13:00 Constitutional: WD/WN, vitals as above Eyes: + anicteric sclerae ENMT: Ears: + hearing impairment Throat: uvula midline Neck: trachea midline Respiratory: normal respiratory effort Auscultation: + diminished lung sounds and + crackles (bases b/l but more prevalent on L base) Cardiovascular: RRR, no murmur, no edema Gastrointestinal (Abdomen): Inspection/Auscultation: normal bowel sounds Percussion/Palpation: abdomen soft; abdomen nontender Musculoskeletal: Head/Neck/Chest: normocephalic, head atraumatic and neck supple Skin: no rashes, warm and dry Neurologic: moves all extremities Psychiatric: A+Ox3, euthymic affect _ (1) Acute congestive heart failure Heart failure type: diastolic Qualified Code(s): I50.31 - Acute diastolic ( congestive) heart failure
[2018-09-17] MEDS: ACETAMINOPHEN 325 MG TAB PO PRN (17:45)
[2018-09-17] MEDS: ATORVASTATIN 40 MG TAB PO SCH (20:35)
[2018-09-17] MEDS: ZOLPIDEM TARTRATE 5 MG TAB PO PRN (23:57)
[2018-09-18] MEDS: LEVOTHYROXINE SODIUM 150 MCG TABLET PO SCH (06:10)
[2018-09-18 08:15] LABS: BUN Creatinine Ratio 15.6 (10-20); Calcium 8.3 mg/dl (8.5-10.1); Creatinine Clr Calc Pharmacy 16.5 ml/min; Est GFR (African American) 17.7; Est GFR (Non-African American) 15.3; Potassium 4.8 mmol/L (3.5-5.1)
[2018-09-18] MEDS: PANTOprazole 40 MG TAB PO SCH (08:42)
[2018-09-18] MEDS: MAGNESIUM OXIDE 400 MG TAB PO SCH (08:43)
[2018-09-18] MEDS: ASPIRIN 81 MG ECTAB PO SCH (08:43)
[2018-09-18] MEDS: ENOXAPARIN INJ 30 MG/0.3 ML SYR SQ SCH (08:43)
[2018-09-18] MEDS: INSULIN ASPART 100 UNITS/ML 3 ML PEN SC SCH ×4 (08:45→21:39)
[2018-09-18] MEDS ORDERED: SODIUM CHLORIDE 0.9% 1000ML 1,000 ML IV PRN ×2 (09:12→11:33)
--- NOTE | 2018-09-18 11:32 | Nephrology Progress Note ---
Date of Service September 18, 2018 Assessment & Plan (1) Acute kidney injury: Mr. Marcum is an 83 year old white male admitted to [facility] for evaluation of dyspnea and wheezing. 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 CXR revealed pulmonary vascular congestion and small bilateral pleural effusions. Thoracentesis was performed and 850 ml of transudative fluid removed from the right lung. Fluid cytology negative. Mr. Marcum has CLL and presented w/ WBC # 90K and progressive anemia. He has suffered a progressive decline in his kidney function from 2.2 to ~ 4.0 mg/dL w / EGFR 14 cc/min over the last 12 months. Mr. Marcum is ESRD and required initiation of HD for correction of CHF -- ESRD. Patient required initiation of HD for correction of CHF -- 1st run HD 09/17/18. No complications. Will dialyze today for continued UF -- Plan 3rd treatment tomorrow. Will attempt to establish EDW -- Will consult discharge planning to set up outpatient HD at [facility] w / Dr. Moreira -- ESRD. Will stop Mg supplement and begin daily Nephrocap (2) Chronic kidney disease: -- Awaiting medical records from Dr. Moreira. (3) CLL (chronic lymphocytic leukemia): -- Hematology consultation appreciated. Patient waiting to talk to Dr. Taylor when available. -- No emergent plan for treatment. -- Question whether LETY therapy can be provided (4) CHF (congestive heart failure): -- CXR 09/17/18: persistent vascular congestion and small bilateral effusions. -- TTE demonstrated increased RVSP with mild concentric LVH. No significant valvular heart disease. LVEF preserved. -- I suspect that a component of the patient's condition is related to pulmonary hypertension (likely related to underlying pulmonary disease and complicated by CLL and kidney dyfunction) Subjective Mr. Marcum was seen & examined in his hospital room this morning. He completed his first HD treatment yesterday. He dialyzed for 2 hours w/ 1.5 L UF. There were no complications and Mr. Macrum reports that his breathing is subjectively improved. He has had no wheezing since his dialysis treatment. Respiratory: + dyspnea on exertion Physical Exam 2 Vital Signs (Past 24 Hours): Last Vital Signs Temp 36.8 C 09/18/18 10:11 Pulse 56 L 09/18/18 11:15 Resp 18 09/18/18 07:17 BP 135/65 09/18/18 11:15 Pulse Ox 97 09/18/18 07:17 Constitutional: well developed and well nourished Eyes: PERRL, conjunctivae normal, anicteric sclerae ENMT: Mouth: + oral mucosal abnormality (dry mucous membranes) Neck: trachea midline, no thyromegaly Respiratory: normal respiratory effort, lungs clear to auscultation Cardiovascular: RRR, no murmur, no edema Vessels: no JVD Extremities: no edema Gastrointestinal (Abdomen): normal bowel sounds, soft, nontender, no hepatosplenomegaly Skin: + turgor decreased Results & Data Laboratory Results Laboratory Tests 09/17/18 09/18/18 06:54 07:05 WBC 79.89 H* Hgb 8.6 L Hct 28.4 L Plt Count 98 L Sodium 139 Potassium 4.8 Chloride 106 BUN 54 H Creatinine 3.49 H Glucose 117 H
[2018-09-18] MEDS: ACETAMINOPHEN 325 MG TAB PO PRN ×2 (14:18→20:26)
[2018-09-18] MEDS: AMLODIPINE BESYLATE 5 MG TAB PO SCH (14:19)
[2018-09-18] MEDS: METOPROLOL SUCC 50MG EXT REL TAB PO SCH (14:19)
[2018-09-18] MEDS: FUROSEMIDE 80 MG TAB PO SCH (14:19)
[2018-09-18] MEDS: ISOSORBIDE MONO EXTENDED REL 60 MG TABCR PO SCH (14:19)
[2018-09-18] MEDS: HydrALAZINE TAB 50 MG TAB PO SCH ×3 (14:20→20:27)
[2018-09-18] MEDS: NEPHROCAPS PO SCH (14:21)
[2018-09-18] MEDS: ALUMINUM/MAGNESIUM SUSP 30 ML UDC PO PRN (17:42)
--- NOTE | 2018-09-18 19:19 | Hospitalist Progress Note ---
Date of Service September 18, 2018 Assessment & Plan (1) Acute congestive heart failure: - This is possible diastolic but this was indeterminant on echo but EF is normal; noted RV pressure of 50-60 mmHg - S/P R thoracentesis on on 09/11 with removal of 850 cc that appeared to be transudative - no growth noted on cx but analysis does show leukocytes which could correlate with his known CLL - Continue diuresis as able - but given renal function he has now entered the phase of dialysis to assist with fluid management (2) Acute kidney injury: - Patient has had a steady decline in renal function over the past year and given fluid issues he is now at dialysis stages - it appears his renal function supports an acute kidney injury superimposed on CKD which is now at ESRD requiring dialysis - Tunneled HD catheter placed on 09/17 with initiation of dialysis on 09/17 and a session today and plans for a session tomorrow; 24 hr urine started - Nephrology following - appreciate input and will need F/U with Dr. Moreira for ongoing sessions (3) Essential hypertension: - Amlodipine 10 mg daily; Hydralazine 50 mg TID; Toprol XL 100 mg daily; HCTZ on hold at this time (4) CLL (chronic lymphocytic leukemia): - Follows with Dr. 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 Possible D/C next 1-2 days Subjective Patient reports feeling generally ok. States he hasn't felt well in years but better then how he was when he first came to the hospital. He is eager to return home. Have some mild pain at tunneled catheter site but is tolerable. Tolerating dialysis and awaiting 24 hour urine. Reports breathing continues to feel better. States he intermittently has fullness in the LUQ towards the back which likely correlates with his splenomegaly He was getting ready for his next dialysis session during my visit Constitutional: + fatigue; no fever and no chills Ear, Nose, Mouth, Throat: + nasal discharge (rather chronic but possibly related to humidified O2) Respiratory: no dyspnea and no wheezing Cardiovascular: no chest pain Gastrointestinal: no abdominal pain, no nausea, no vomiting, no constipation and no diarrhea/loose stools Musculoskeletal: no swelling Integumentary: no rash Physical Exam 2 Vital Signs (Past 24 Hours): Last Vital Signs Temp 37.1 C 09/18/18 15:14 Pulse 62 09/18/18 16:08 Resp 18 09/18/18 15:14 BP 133/66 09/18/18 15:14 Pulse Ox 98 09/18/18 15:14 Constitutional: WD/WN, vitals as above Eyes: + anicteric sclerae ENMT: Ears: + hearing impairment Throat: uvula midline Neck: trachea midline Respiratory: normal respiratory effort Auscultation: + diminished lung sounds and + crackles (bases b/l but more prevalent on L base) Cardiovascular: RRR, no murmur, no edema Gastrointestinal (Abdomen): Inspection/Auscultation: normal bowel sounds Percussion/Palpation: abdomen soft; abdomen nontender Musculoskeletal: Head/Neck/Chest: normocephalic, head atraumatic and neck supple Skin: no rashes, warm and dry Neurologic: moves all extremities Psychiatric: A+Ox3, euthymic affect _ (1) Acute congestive heart failure Heart failure type: diastolic Qualified Code(s): I50.31 - Acute diastolic ( congestive) heart failure
[2018-09-18] MEDS: HEPARIN SOD 5,000 UNIT/0.5 ML VIAL SQ SCH (20:25)
[2018-09-18] MEDS: ZOLPIDEM TARTRATE 5 MG TAB PO PRN (20:26)
[2018-09-18] MEDS: ATORVASTATIN 40 MG TAB PO SCH (20:27)
[2018-09-19] MEDS ORDERED: HEPARIN SOD (PORCINE) 1000 UNIT/ML 10 ML VIAL IV ONE (06:00)
[2018-09-19] MEDS: LEVOTHYROXINE SODIUM 150 MCG TABLET PO SCH (06:25)
[2018-09-19] MEDS: PANTOprazole 40 MG TAB PO SCH (08:05)
[2018-09-19] MEDS: ISOSORBIDE MONO EXTENDED REL 60 MG TABCR PO SCH ×2 (08:05→13:34)
[2018-09-19] MEDS: HydrALAZINE TAB 50 MG TAB PO SCH ×3 (08:05→21:06)
[2018-09-19] MEDS: METOPROLOL SUCC 50MG EXT REL TAB PO SCH (08:06)
[2018-09-19] MEDS: CALCITRIOL 0.25 MCG CAPSULE PO SCH (08:06)
[2018-09-19] MEDS: ASPIRIN 81 MG ECTAB PO SCH (08:06)
[2018-09-19] MEDS: NEPHROCAPS PO SCH (08:06)
[2018-09-19] MEDS: AMLODIPINE BESYLATE 5 MG TAB PO SCH ×2 (08:07→13:35)
[2018-09-19] MEDS: INSULIN ASPART 100 UNITS/ML 3 ML PEN SC SCH ×4 (08:11→21:09)
[2018-09-19] MEDS: FUROSEMIDE 80 MG TAB PO SCH ×2 (08:21→13:35)
[2018-09-19] MEDS: HEPARIN SOD 5,000 UNIT/0.5 ML VIAL SQ SCH ×2 (08:24→21:01)
[2018-09-19 08:28] LABS: Hematocrit (blood only) 30.7 % (42-52); Hemoglobin 9.5 g/dL (14.0-18.0); Mean Corpuscular Hgb Conc 30.9 g/dL (32-36); Mean Corpuscular Volume 104.1 fL (80-100); Mean Platelet Volume 10.3 fL (7.4-10.4); Platelet Count 96 K/uL (130-400); RDW Coefficient of Variation 16.3 % (11.5-14.5); RDW Standard Deviation 60.9 fL (36.4-46.3); Red Blood Count 2.95 M/uL (4.7-6.1); White Blood Count 110.21 K/uL (4.8-10.8)
[2018-09-19 08:53] LABS: BUN Creatinine Ratio 11.3 (10-20); Calcium 8.4 mg/dl (8.5-10.1); Creatinine Clr Calc Pharmacy 13.9 ml/min; Est GFR (African American) 14.5; Est GFR (Non-African American) 12.5; Potassium 5.6 mmol/L (3.5-5.1)
[2018-09-19 10:03] LABS: Total Protein 24 Hour Urine 822.8 mg/24 Hr (0-149.1); Urine Total Protein 205.7 mg/dl
--- NOTE | 2018-09-19 10:28 | Nephrology Progress Note ---
Date of Service September 19, 2018 Assessment & Plan (1) Acute kidney injury: Mr. Marcum is an 83 year old white male admitted to [facility] for evaluation of dyspnea and wheezing. 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 CXR revealed pulmonary vascular congestion and small bilateral pleural effusions. Thoracentesis was performed and 850 ml of transudative fluid removed from the right lung. Fluid cytology negative. Mr. Marcum has CLL and presented w/ WBC # 90K and progressive anemia. He has suffered a progressive decline in his kidney function from 2.2 to ~ 4.0 mg/dL w / EGFR 14 cc/min over the last 12 months. Mr. Marcum is ESRD and required initiation of HD 09/17/18 for correction of CHF -- 3rd HD today. Will limit HD to 2 hours and attempt only 1 L UF. Patient appears to be nearing EDW -- Discharge planning has been consulted to set up outpatient HD at [facility] w/ Dr. Moreira -- Patient indicates that he wishes to have AVF created at [facility]. Will consult Dr. Benjamin (2) Chronic kidney disease: -- Awaiting medical records from Dr. Moreira. (3) CLL (chronic lymphocytic leukemia): -- Hematology consultation appreciated. Patient waiting to talk to Dr. Taylor when available. -- No emergent plan for treatment. -- Question whether LETY therapy can be provided (4) CHF (congestive heart failure): -- CXR 09/17/18: persistent vascular congestion and small bilateral effusions. -- TTE demonstrated increased RVSP with mild concentric LVH. No significant valvular heart disease. LVEF preserved. -- I suspect that a component of the patient's condition is related to pulmonary hypertension (likely related to underlying pulmonary disease and complicated by CLL and kidney dyfunction) Subjective Mr. Marcum was seen & examined in his hospital room this morning. He completed his second HD treatment yesterday. He dialyzed for 3 hours w/ 2 L UF. His dialysis was complicated by muscle cramping the last 30 minutes of treatment. Mr. Marcum is breathing easily on O2 at 3 L / min NC. He reports that he does require oxygen at home as well. Physical Exam 2 Vital Signs (Past 24 Hours): Last Vital Signs Temp 37.0 C 09/19/18 09:40 Pulse 53 L 09/19/18 10:15 Resp 20 09/19/18 07:41 BP 112/59 L 09/19/18 10:15 Pulse Ox 53 L 09/19/18 07:41 Constitutional: well developed and well nourished Eyes: PERRL, conjunctivae normal, anicteric sclerae ENMT: Mouth: + oral mucosal abnormality (dry mucous membranes) Neck: trachea midline, no thyromegaly Respiratory: normal respiratory effort, lungs clear to auscultation Cardiovascular: RRR, no murmur, no edema Vessels: no JVD Extremities: no edema Gastrointestinal (Abdomen): normal bowel sounds, soft, nontender, no hepatosplenomegaly Skin: + turgor decreased
--- NOTE | 2018-09-19 12:39 | Post Anesthesia Assessment ---
Date of Service September 17, 2018 Post Sedation Assessment Vital Signs Temp Pulse Pulse Pulse Resp BP BP 09/19/18 11:41 36.3 C L 57 L 57 L 149/79 H 09/19/18 11:30 53 L 121/59 L 09/19/18 11:15 53 L 130/67 09/19/18 11:00 53 L 122/62 09/19/18 10:45 53 L 117/58 L 09/19/18 10:30 53 L 123/59 L 09/19/18 10:15 53 L 112/59 L 09/19/18 10:00 52 L 122/59 L 09/19/18 09:45 55 L 133/61 09/19/18 09:40 37.0 C 55 L 55 L 127/64 09/19/18 09:36 51 L 09/19/18 07:41 36.3 C L 53 L 20 126/56 L 09/19/18 04:00 37 C 51 L 18 09/18/18 23:55 37.0 C 57 L 16 09/18/18 20:24 67 09/18/18 19:00 36.3 C L 63 20 09/18/18 16:08 62 09/18/18 15:14 37.1 C 65 18 133/66 09/18/18 13:43 37.1 C 66 09/18/18 13:19 66 155/77 H 09/18/18 13:00 60 125/66 09/18/18 12:45 59 L 129/64 BP Pulse Ox 09/19/18 11:41 149/79 H 09/19/18 11:30 09/19/18 11:15 09/19/18 11:00 09/19/18 10:45 09/19/18 10:30 09/19/18 10:15 09/19/18 10:00 09/19/18 09:45 09/19/18 09:40 09/19/18 09:36 09/19/18 07:41 53 L 09/19/18 04:00 117/46 L 95 09/18/18 23:55 112/66 96 09/18/18 20:24 138/81 09/18/18 19:00 144/48 H 99 09/18/18 16:08 09/18/18 15:14 98 09/18/18 13:43 155/77 H 09/18/18 13:19 09/18/18 13:00 09/18/18 12:45 Recovery Score Activity: Moves 4 extremities Respiration: Deep Breath/Cough Circulation: +/-20% PreAnes Value Consciousness: Fully Awake Oxygen Saturation: O2 needed for >90% Post Anesthesia Score: 9 Post Sedation Plan On clinical assessment, the patient appears to have tolerated the sedation without complications. Patient is recovering as anticipated. Patient will continue to be monitored by nursing and may be discharged when sedation discharge criteria are met per below protocol. Upon Completions of procedure and additional 15 minutes continue every 5 minute vital signs and the P.A.R. score; then discharge to a Phase I or Fast Track to Phase II per the following guidelines: * Discharge Patient to appropriate Phase II area if PAR is 8 or greater or return to pre- procedure baseline. The post - procedure orders will be as directed. * If PAR score is less than 8 or not return to pre-procedure baseline then patient will follow Phase I monitoring till PAR is reached for Phase II. The Phase I may be done in procedure room or may call to secure a Phase I area. * If naloxone or flumazenil are used for reversal, hold in Phase I for continued monitoring from when last reversal dose was given for a minimum of 60 minutes or longer pending the nurse and/or physician discretion of patient condition before discharge to Phase II. Please call the Sedation Physician to re-evaluate and complete post-note for discharge to Phase II area. Do NOT discharge from procedure sedation or Phase 1 until post- sedation evaluation note is complete by procedure /sedation MD Sedation Discharge Instructions to be given to the patient at discharge to home.
[2018-09-19] MEDS: ALUMINUM/MAGNESIUM SUSP 30 ML UDC PO PRN (13:43)
--- NOTE | 2018-09-19 16:00 | Ultrasound Report ---
US venous mapping bilateral upper extremity CLINICAL HISTORY: acute renal failure, need for fistula COMPARISON STUDY: None. FINDINGS: The bilateral cephalic and basilic veins are widely patent. These measure between 2 and 5 m m in diameter, bilaterally. Exact measurements are provided on the PACS system. IMPRESSION: The bilateral cephalic and basilic veins are widely patent. Electronically signed by: Juan F Milligan M.D. 09/19/2018 3:58 PM
--- NOTE | 2018-09-19 20:58 | Hospitalist Progress Note ---
Date of Service September 19, 2018 Assessment & Plan (1) Acute congestive heart failure: - This is possible diastolic but this was indeterminant on echo but EF is normal; noted RV pressure of 50-60 mmHg - S/P R thoracentesis on on 09/11 with removal of 850 cc that appeared to be transudative - no growth noted on cx but analysis does show leukocytes which could correlate with his known CLL - Currently Lasix 80 mg daily and will discuss with nephrology for any adjustment - Continue diuresis as able - but given renal function he has now entered the phase of dialysis to assist with fluid management (2) Acute kidney injury: - Patient has had a steady decline in renal function over the past year and given fluid issues he is now at dialysis stages - it appears his renal function supports an acute kidney injury superimposed on CKD which is now at ESRD requiring dialysis - Tunneled HD catheter placed on 09/17 with initiation of dialysis on 09/17 and since has had 2 further sessions - Nephrology following - appreciate input and will need F/U with Dr. Moreira for ongoing sessions (3) Essential hypertension: - Amlodipine 10 mg daily; Hydralazine 50 mg TID; Toprol XL 100 mg daily; HCTZ on hold at this time (4) CLL (chronic lymphocytic leukemia): - Follows with Dr. 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 States he felt a little sick to the stomach during the longer duration of dialysis yesterday but had no issues with dialysis today He is concerned that his WBC count is going up but states he is not in a place to start treatment for this and is following with Dr. Taylor. He is concerned because multiple friends/family have had adverse effects from chemotherapy medications so he would like to hold off until he needs active treatment He is having some ecchymosis around tunnel catheter but states its only mildly sore He also states the he would like to have his AV fistula placed at [facility] however then states if he can do this at a later time he would prefer as he would like to go home tomorrow States that he enjoys the care here and therefore would like to have this procedure done here instead of another hospital as this was planned to be completed by his outpatient workday director Constitutional: + fatigue; no fever and no chills Respiratory: no dyspnea Cardiovascular: no chest pain and no edema Gastrointestinal: + bloating; no abdominal pain, no nausea, no vomiting, no constipation and no diarrhea/loose stools Physical Exam 2 Vital Signs (Past 24 Hours): Last Vital Signs Temp 36.6 C 09/19/18 19:00 Pulse 64 09/19/18 19:00 Resp 23 09/19/18 19:00 BP 132/55 L 09/19/18 19:00 Pulse Ox 97 09/19/18 19:00 Constitutional: WD/WN, vitals as above Eyes: + anicteric sclerae ENMT: Ears: + hearing impairment Throat: uvula midline Neck: trachea midline Respiratory: normal respiratory effort Auscultation: + diminished lung sounds and + crackles (bases b/l but more prevalent on L base) Cardiovascular: RRR, no murmur, no edema Gastrointestinal (Abdomen): Inspection/Auscultation: normal bowel sounds Percussion/Palpation: abdomen soft; abdomen nontender Musculoskeletal: Head/Neck/Chest: normocephalic, head atraumatic and neck supple Skin: no rashes, warm and dry Neurologic: moves all extremities Psychiatric: A+Ox3, euthymic affect _ (1) Acute congestive heart failure Heart failure type: diastolic Qualified Code(s): I50.31 - Acute diastolic ( congestive) heart failure
[2018-09-19] MEDS: ACETAMINOPHEN 325 MG TAB PO PRN (21:07)
[2018-09-19] MEDS: ZOLPIDEM TARTRATE 5 MG TAB PO PRN (21:07)
[2018-09-19] MEDS: ATORVASTATIN 40 MG TAB PO SCH (21:48)
[2018-09-20] MEDS: LEVOTHYROXINE SODIUM 150 MCG TABLET PO SCH (06:06)
[2018-09-20 07:57] LABS: BUN Creatinine Ratio 12.2 (10-20); Calcium 8.1 mg/dl (8.5-10.1); Creatinine Clr Calc Pharmacy 15.3 ml/min; Est GFR (African American) 16.2; Potassium 4.8 mmol/L (3.5-5.1)
[2018-09-20] MEDS: AMLODIPINE BESYLATE 5 MG TAB PO SCH (08:52)
[2018-09-20] MEDS: ASPIRIN 81 MG ECTAB PO SCH (08:52)
[2018-09-20] MEDS: FUROSEMIDE 80 MG TAB PO SCH (08:53)
[2018-09-20] MEDS: NEPHROCAPS PO SCH (08:53)
[2018-09-20] MEDS: ISOSORBIDE MONO EXTENDED REL 60 MG TABCR PO SCH (08:53)
[2018-09-20] MEDS: HydrALAZINE TAB 50 MG TAB PO SCH ×2 (08:53→13:23)
[2018-09-20] MEDS: METOPROLOL SUCC 50MG EXT REL TAB PO SCH (08:54)
[2018-09-20] MEDS: HEPARIN SOD 5,000 UNIT/0.5 ML VIAL SQ SCH (08:54)
[2018-09-20] MEDS: PANTOprazole 40 MG TAB PO SCH (08:54)
[2018-09-20] MEDS: INSULIN ASPART 100 UNITS/ML 3 ML PEN SC SCH ×2 (08:55→12:08)
[2018-09-20] MEDS: HEPARIN SOD (PORCINE) 1000 UNIT/ML 10 ML VIAL IV SCH ×2 (09:04→09:05)
--- NOTE | 2018-09-20 10:00 | Nephrology Progress Note ---
Date of Service September 20, 2018 Assessment & Plan (1) ESRD (end stage renal disease): Mr. Marcum is an 83 year old white male admitted to [facility] for evaluation of dyspnea and wheezing. 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 CXR revealed pulmonary vascular congestion and small bilateral pleural effusions. Thoracentesis was performed and 850 ml of transudative fluid removed from the right lung. Fluid cytology negative. Mr. Marcum has CLL and presented w/ WBC # 90K and progressive anemia. He has suffered a progressive decline in his kidney function from 2.2 to ~ 4.0 mg/dL w / EGFR 14 cc/min over the last 12 months. Mr. Marcum is ESRD and required initiation of HD 09/17/18 for correction of CHF -- EDW appears to be 82 kg. Patient is currently euvolemic. Electrolyte balance is acceptable. No acute indication for HD today -- If still hospitalized tomorrow will provide inpatient HD -- If discharge is anticipated please schedule appointment w/ Dr. Benjamin in 1 - 2 weeks for AVF creation -- No [facility] Nephrology follow up visit needed. Outpatient Nephrology care will be provided by Dr. Moreira at the [facility] HD unit (2) CLL (chronic lymphocytic leukemia): -- Hematology consultation appreciated. Patient waiting to talk to Dr. Taylor when available. -- No emergent plan for treatment. -- Question whether LETY therapy can be provided (3) CHF (congestive heart failure): -- CXR 09/17/18: persistent vascular congestion and small bilateral effusions. -- TTE demonstrated increased RVSP with mild concentric LVH. No significant valvular heart disease. LVEF preserved. -- I suspect that a component of the patient's condition is related to pulmonary hypertension (likely related to underlying pulmonary disease and complicated by CLL and kidney dyfunction) Subjective Mr. Marcum was seen & examined in his hospital room this morning. He completed his third HD treatment yesterday. He dialyzed for 2 hours w/ 1 L UF. He had no muscle cramping. Mr. Marcum is breathing easily on O2 at 3 L / min NC. He is anxious to return home. Mr. Marcum has requested outpatient dialysis at [facility] as this is closest to his home. Respiratory: + dyspnea on exertion Physical Exam 2 Vital Signs (Past 24 Hours): Last Vital Signs Temp 36.7 C 09/20/18 07:52 Pulse 64 09/20/18 07:52 Resp 20 09/20/18 07:52 BP 155/68 H 09/20/18 07:52 Pulse Ox 97 09/20/18 07:52 Constitutional: well developed and well nourished Eyes: PERRL, conjunctivae normal, anicteric sclerae ENMT: Mouth: + oral mucosal abnormality (dry mucous membranes) Neck: trachea midline, no thyromegaly Respiratory: normal respiratory effort, lungs clear to auscultation Cardiovascular: RRR, no murmur, no edema Vessels: no JVD Extremities: no edema Gastrointestinal (Abdomen): normal bowel sounds, soft, nontender, no hepatosplenomegaly Skin: + turgor decreased Results & Data Laboratory Results Laboratory Tests 09/19/18 09/20/18 08:16 06:58 WBC 110.21 H* Hgb 9.5 L Hct 30.7 L Plt Count 96 L Sodium 133 L Potassium 4.8 Chloride 103 Carbon Dioxide 24 BUN 46 H Creatinine 3.75 H D Glucose 135 H Calcium 8.1 L
[2018-09-20] MEDS ORDERED: SODIUM CHLORIDE 0.9% 1000ML 1,000 ML IV PRN (10:09)
--- NOTE | 2018-09-21 17:49 | Discharge Summary ---
Date of Service September 20, 2018 Admission HPI Per Admitting Provider 83 y/o M Hx HTN, HLD, COPD, DM II, hypothyroid, CLL, CKD III. The pt presentes as a transfer from [facility] due to progressive SOB x 2 weeks. He reports that this is pronounced with exertion. He normally uses 2l 02 at home. A CTA was obtained at [place] demonstrating moderate BL pleural effusions. Initial labs were concerning for a WBC count of 114 which is well above baseline, anemia and worsening renal function. The pt denies CP, a productive cough or fevers. 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 Does not drink alcohol. Lives with his . Family: Mother due to CAD Principal Diagnosis Suspected Diastolic CHF Exacerbation and ESRD on Dialysis Discharge Exam Constitutional WD/WN, vitals as above Eyes + anicteric sclerae ENMT Ears: + hearing impairment Throat: uvula midline Neck trachea midline Respiratory normal respiratory effort Auscultation: + diminished lung sounds Cardiovascular RRR, no murmur, no edema Chest (Breasts) Chest: + vascular access device or port (R upper chest with some ecchymosis around site but no erythema/drainage and insertion site) Gastrointestinal (Abdomen) Inspection/Auscultation: normal bowel sounds Percussion/Palpation: abdomen soft; abdomen nontender Musculoskeletal Head/Neck/Chest: normocephalic, head atraumatic and neck supple Skin no rashes, warm and dry Neurologic moves all extremities Psychiatric A+Ox3, euthymic affect Discharge Data Allergies Allergy/AdvReac Type Severity Reaction Status Date / Time No Known Allergies Allergy Unverified 02/26/15 15:21 Consultations 09/11/18 08:07 Consult Nephrology Routine Consult Thoracic Surgery Routine 09/17/18 08:55 Consult Vascular Surgery Routine 09/17/18 09:39 Consult Case Management - Discharge Planning Routine 09/19/18 10:23 Consult Vascular Surgery Routine 09/10/18 22:11 Consult Strategy Associate Routine 09/10/18 22:23 Consult Hematology Routine Procedures Performed Operation Date: 09/17/18 09:45 Actual Procedures p Insertion Of Perm Catheter, Right Internal Jugular Approach, Ultrasound Guidance For Access Of Right Internal Jugular Vein, Fluoroscopy For Positioning , Moderate Concious Sedation 1102 to 1127(Right) - Jalen Benjamin MD Ordered Studies US venous mapping bilateral upper extremity FINDINGS: The bilateral cephalic and basilic veins are widely patent. These measure between 2 and 5 mm in diameter, bilaterally. Exact measurements are provided on the PACS system. IMPRESSION: The bilateral cephalic and basilic veins are widely patent. XR chest 1V portable FINDINGS: The heart is mildly enlarged. There is improving mild interstitial thickening. There are persistent left basilar airspace opacities/edema.[ There are trace bilateral pleural effusions. IMPRESSION: 1. Cardiomegaly and improving mild pulmonary vascular congestion 2. Persistent left basilar airspace opacity: focal edema versus atelectasis versus infectious/inflammatory 3. Persistent trace bilateral pleural effusions RENAL ULTRASOUND FINDINGS: The right kidney measures 9.2 cm in maximal dimension and the left measures 9.8 cm per there is no hydronephrosis. There is moderate renal cortical thinning. Several left renal cysts are noted. Incidental note is made of a left pleural effusion and moderate splenomegaly. Spleen measures 17.1 cm in maximal dimension. A few splenic cysts are noted. Bladder is suboptimally assessed given underdistention. There is mild irregular bladder wall thickening. IMPRESSION: 1. No hydronephrosis. 2. Moderate splenomegaly. 3. Moderate renal cortical thinning. 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 - Given renal function he has now entered the phase of dialysis to assist with fluid management (2) Acute kidney injury: - Patient has had a steady decline in renal function over the past year and given fluid issues he is now at dialysis stages - it appears his renal function supports an acute kidney injury superimposed on CKD which is now at ESRD requiring dialysis - Tunneled HD catheter placed on 09/17 with initiation of dialysis on 09/17 and since has had 2 further sessions in-house - He was established with outpatient dialysis at [facility] - He has an established appointment with Dr. Joy ([facility]) to have AV Fistula placed later this month (3) Essential hypertension: - Amlodipine 10 mg daily; Hydralazine 25 mg TID; Toprol XL 100 mg daily; Lasix 80 mg daily (4) CLL (chronic lymphocytic leukemia): - Follows with Dr. Taylor at the cancer center - no active treatment at this time - WBC at 110 prior to discharge - Patient is hesitant to start treatment for this condition as he knows multiple people with bad side effects from cancer treatment. Encouraged him to at least have a F/U with Dr. Friedman for monitoring but he states "I am not ready for treatment yet" - Which given age and co-morbidities a palliative approach may be beneficial for him. 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 Set him up with portable tanks as he sent those back in the past - now that he is on dialysis he may be able to wean further on O2 if fluid balance improves (6) Diabetes: - Continue Glipizide 5 mg BID (7) Hypothyroidism: - Levothyroxine 150 mcg daily Total Time Total Time Spent Total Time Spent (In Minutes): Greater than 30 minutes Discharge Plan Discharge Items Patient Disposition: Home - Self-Care Reason For Visit: PLEURAL EFFUSIONS,SOB Discharge Diagnosis: Pleural Effusions; End Stage Kidney Disease with Dialysis Discharge Goals: Decrease discomfort, Improve disease control and Improve function Activity: Resume your previous activity Non-emergency contact: Primary Care Provider Call non-emergency contact if: you have any medication questions, your symptoms worsen and you have a fever Follow-up/Referrals: Chino Bergeron PA-C [Physician Specialized Language Instructor] - 09/27/18 2:40 pm (Please, follow up at [facility] Pulmonology [facility] with Gerber Bergeron PA-C on September 27 at 3:00 pm (arrive 2:40 pm). *THIS OFFICE IS LOCATED IN [address] OF THE [facility]EXT TO THIS HOSPITAL. If you need to change this appointment, call the office at [phone].) Pro Taylor DO [Physician] - (Please, follow up at [facility] with Dr. Taylor. *This office is located in the rear of this hospital. Park behind the hospital in [address] and enter via [facility]. The office phone number is [phone].) Bryce Randle [Primary Care Provider] - 09/25/18 4:00 pm (Please, follow up with Dr. Randle in the [place] Office on MondaySeptember 25 at 4:00 pm. *If you need to change this appointment, call the office at [phone].) Chaitanya Joy MD [Outside Practitioners] - 10/03/18 1:00 pm (Please, follow up with Dr. Joy on MondayOctober 03 at 1:00 pm. *This office is located at [address] [place] [address] in [place]. If you need to change this appointment, call the office at [phone]. THIS APPOINTMENT MAY INTERFERE WITH YOUR CHAIR TIME AT DIALYSISYOU MAY NEED TO CALL DR. JOY AND RESCHEDULE THIS APPOINTMENT ) Diet: Carb Consistent or DM2 and Low Potassium (2gm) Addtl Provider Instructions: Fluid on the Lungs: - Your shortness of breath came from having a back-up of fluid that was sitting around your lungs making it hard to breath - Your heart looks good on ultrasound but with your underlying lung issues this could have help hold on to fluids. As well, your kidneys do not work as well as they used to making your fluid balance more difficult. - You had a thoracentesis or a catheter placed in your chest to drain 850 mL of fluid. - You were started on Lasix 80 mg daily to take to help balance fluid as well as dialysis. As long as your are making urine you can continue of the Lasix but please talk with your kidney doctor as they may want to change this with time - You know require dialysis to help pull extra fluids off your body. - You are set up for [facility] in [place] and will go on Monday , Monday, and Monday with your next session being this Monday. Case management is assisting with getting you transportation to these appointments CLL - Leukemia - Recommend to keep in touch with your cancer doctor (Dr. Taylor) even if the plan is to hold of treatment at this time they can help keep track of your labs and monitor for any changes. Oxygen: - Recommend to continue your oxygen as prescribed. No with dialysis you may be able to not need as much oxygen but please discuss this with your family doctor. - Would recommend to continue to use your CPAP if you can. As sleep apnea can cause more pressure on the heart and lungs Fistula: - Please keep your appointment with Dr. Joy on the September to discuss the AV fistula placement for your dialysis Prescriptions: New furosemide 80 mg Tablet 80 mg PO QAM 30 Days Qty: 30 RF: 0 B complex with C#20-folic acid [Renal Caps] 1 mg Capsule 1 cap PO QAM 30 Days Qty: 30 RF: 0 Continue AMLODIPINE BESYLATE (NORVASC) 10 MG tablet 10 mg PO DAILY Qty: 0 RF: 0 ASPIRIN (ASPIRIN EC) 81 MG tablet 81 mg PO DAILY Qty: 0 RF: 0 Calcitriol 0.25 MCG capsule 0.25 mcg PO Q OTHER DAY Qty: 0 RF: 0 GLIPIZIDE (GLUCOTROL) 5 MG tablet 5 mg PO BID Qty: 0 RF: 0 HAWTHORN (HAWTHORN PEREZ) 550 MG capsule 150 mg PO DAILY PRN (Reason: as needed) Qty: 0 RF: 0 IPRATROPIUM-ALBUTEROL (COMBIVENT RESPIMAT) 1 AER AER 1 puff Inhalation Q6H Qty: 0 RF: 0 LEVOTHYROXINE SODIUM 25 MCG tablet 150 mcg PO DAILY Qty: 0 RF: 0 MULTIVITAMINS/MINERALS (MVI WITH MINERALS) tablet 1 tab PO DAILY Qty: 0 RF: 0 Metoprolol Succinate (Metoprolol Succinate ER) 100 MG [id number] 100 mg PO DAILY Qty: 0 RF: 0 isosorbide mononitrate 120 mg Tablet Extended Release 24 Hr 120 mg PO DAILY RF: 0 cholecalciferol (vitamin D3) [Vitamin D3] 2,000 unit Capsule 2,000 unit PO DAILY RF: 0 selenium 50 mcg Tablet 50 mcg PO DAILY RF: 0 cinnamon bark-chromium picolin 1 tab PO DAILY RF: 0 turmeric root extract 500 mg Capsule 500 mg PO DAILY RF: 0 Pro Stavan 1 tab PO DAILY RF: 0 lysine [L-Lysine] 500 mg Tablet 500 mg PO DAILY RF: 0 grape seed extract 1 tab PO DAILY RF: 0 clonidine 0.3 mg/24 hr Patch Weekly 1 patch Transdermal WK RF: 0 magnesium 250 mg Tablet 250 mg PO DAILY RF: 0 omeprazole 20 mg Capsule,Delayed Release(Dr/Ec) 20 mg PO DAILY PRN (Reason: Acid Reflux) RF: 0 lorazepam 0.5 mg Tablet 1 tab PO PRN (Reason: Anxiety) RF: 0 atorvastatin 40 mg Tablet 40 mg PO HS RF: 0 hydralazine 25 mg Tablet 25 mg PO TID RF: 0 umeclidinium [Incruse Ellipta] 62.5 mcg/actuation Blister With Device 1 inh INHALATION DAILY RF: 0 Visit Report Forms: My [facility] Stand-Alone Forms: [facility] Discharge Orders: Discharge Order (Routine); Ordered 09/20/18 Ordered By: Seble Parker Admission Data Admit Date/Time: 09/10/18 20:36 Attending Provider: Francisco Cervantes Admit Provider: Kellie Field Primary Care Provider: Bryce Randle Other Providers: Hussain Bill ; Eloisa Martinez ; Pro Taylor V ; Anup Pineda ; Diony Saha ; Jalen Benjamin Service: Telemetry Other Interventions: Discharge Summary Assessment (RN) Last Done: 09/20/18 12:25 Pending Studies at Discharge: No DC Date/Time DO NOT enter until pt leaves facility: 09/20/18 14:49
== END 2018-09-20 14:49 | disposition home or self-care (01) | DRG 291 ==
LOC: 2W 20:36 → SUATTDRO 20:36